=== PATIENT | male | born 1965 | race Caucasian/White ===

== ENCOUNTER 2017-11-12 19:45 | Emergency (ER) | payer BC, OTHER ==
[~2017-11-12] VITALS: Ht 175.3 cm; Wt 118.5 kg
[2017-11-12 19:59] VITALS: BP 137/80; PULSE 64; RESP 18; TEMP 98.4; O2SAT 97
[2017-11-12] MEDS ORDERED: ACETAMINOPHEN/HYDROcodone 325 MG/5 MG TAB PO ONE (20:15)
[2017-11-12] MEDS ORDERED: predniSONE 20 MG TAB PO ONE (20:15)
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
[2017-11-12] MEDS ORDERED: IBUP1TAB7 PO (20:41)
[2017-11-12] MEDS ORDERED: ROBA500T PO (20:41)
== END 2017-11-12 21:07 | disposition home or self-care (01) ==
LOC: PHEFT 19:45
DX: S39.012A Strain of muscle, fascia and tendon of lower back, initial encounter (principal); W22.09XA Striking against other stationary object, initial encounter; Y92.814 Boat as the place of occurrence of the external cause; Z79.899 Other long term (current) drug therapy; Z98.84 Bariatric surgery status
CPT/HCPCS: 72110; 99283; J7512

== ENCOUNTER 2017-12-06 02:01 | Inpatient (IN) ==
[2017-12-06] MEDS ORDERED: Acetaminophen 325 MG Tablet PO ONE (02:24)
[2017-12-06] MEDS ORDERED: Morphine Inj 4 MG/ML Vial IV.PUSH ONE (02:24)
--- NOTE | 2017-12-06 02:28 | ED ---
HPI General Chief complaint: Abdominal Pain Stated complaint: abd pain Time Seen by Provider: 12/06/17 02:13 Source: patient Mode of arrival: ambulatory Limitations: no limitations History of Present Illness HPI narrative: 52yo M with PSH of gastric sleeve presents to the ED with return of epigastric abdominal pain around 1am today. Said pain is constant, dull and nonradiating. Denies any more nausea. Denies vomiting, dysuria, hematuria, diarrhea, chest pain, sob, focal weakness or numbness. Pt denies any previous similar pain. Denies any history of gallstone or alcohol abuse. Pt was seen yesterday morning and had extensive work up including labs and CT a/p. He had mild leukocytosis, normal lipase and LFT as well as normal CT scan. He was given zofran and dilaudid. Was told to return to the ED if symptoms worsen. Related Data Previous Rx's Medication Instructions Recorded ondansetron HCl [Zofran] 4 mg PO Q6H PRN #12 tab 12/05/17 Allergies Allergy/AdvReac Type Severity Reaction Status Date / Time No Known Allergies Allergy Verified 12/06/17 03:00 Review of Systems ROS Unobtainable All other systems reviewed negative except as stated in HPI [facility] Medical History Medical History Patient denies medical problems (Acute) Surgical History Surgical History H/O gastric bypass (Acute) Social History Social History Substance History: No History of Abuse Second Hand Smoke Exposure: No Smoking Status: Never smoker How Often Do You Have a Drink Containing Alcohol: Never Exam Narrative Exam Narrative: GENERAL: 52yo M in mild distress. SKIN: Focused skin assessment warm/dry. HEAD: Atraumatic. Normocephalic. EYES: Pupils equal and round. No scleral icterus. No injection or drainage. ENT: No nasal bleeding or discharge. Mucous membranes pink and moist. NECK: Trachea midline. No JVD. CARDIOVASCULAR: Regular rate and rhythm. No murmur appreciated. RESPIRATORY: No accessory muscle use. Clear to auscultation. Breath sounds equal bilaterally. GASTROINTESTINAL: Abdomen soft, +TTP epigastric region. No rebound tenderness or guarding. MUSCULOSKELETAL: No obvious deformities. No clubbing. No cyanosis. No edema. NEUROLOGICAL: Awake and alert. No obvious cranial nerve deficits. Motor grossly within normal limits. Normal speech. PSYCHIATRIC: Appropriate mood and affect; insight and judgment normal. Course Initial Documented Vital Signs Temperature 100.6 F H 12/06/17 02:07 Pulse Rate 74 12/06/17 02:07 Respiratory Rate 20 12/06/17 02:07 Blood Pressure 149/91 H 12/06/17 02:07 Pulse Oximetry 99 12/06/17 02:07 Last Documented Vital Signs Temperature 99.6 F 12/06/17 04:00 Pulse Rate 78 12/06/17 04:33 Respiratory Rate 18 12/06/17 04:33 Blood Pressure 131/91 H 12/06/17 04:33 Pulse Oximetry 96 12/06/17 04:00 Medical Decision Making MDM Narrative Medical decision making narrative: 52yo M returns with severe epigastric abdominal pain after pain returned at 1am today. He was seen yesterday and discharged from the ED. He does have a mild fever at 100.6F today. Pt given acetaminophen for fever. Will repeat blood work including lipase to evaluate for any changes. Pt given morphine for pain. Labs reviewed, mildly increased leukocytosis at 14.7. H/H normal. Lipase normal. Liver enzymes normal. Pt reevaluated at bedside and pain has improved a little but still does not feel well and still in pain. Pt does meet SIRS criteria and this is a return visit in 24 hours. Will do blood culture, obtain UA, give zosyn and observe with possible GI consult. Discussed with Dr. Hale's PA and accepted to her service. Differential Diagnosis Differential Diagnosis: Choledocholithiasis vs. ascending cholangitis vs. pancreatitis vs. gastritis vs. peptic ulcer disease Lab Data Result diagrams: 12/06/17 02:30 12/06/17 02:30 Lab Results 12/06/17 12/06/17 12/06/17 Range/Units 02:30 02:30 03:30 CBC w Diff Auto diff final WBC 14.7 H (4.0-11.0) th/mm3 RBC 5.23 (4.50-5.90) mil/mm3 Hgb 14.4 (13.0-17.0) gm/dL Hct 42.9 (39.0-51.0) % MCV 81.9 (80.0-100.0) fL MCH 27.6 (27.0-34.0) pg MCHC 33.7 (32.0-36.0) % RDW 13.8 (11.6-17.2) % Plt Count 288 (150-450) th/mm3 MPV 8.6 (7.0-11.0) fL Neut % (Auto) 85.7 H (16.0-70.0) % Lymph % (Auto) 7.8 L (9.0-44.0) % [place] % (Auto) 5.8 (0.0-8.0) % Eos % (Auto) 0.5 (0.0-4.0) % Baso % (Auto) 0.2 (0.0-2.0) % Neut # (Auto) 12.6 H (1.8-7.7) th/mm3 Lymph # (Auto) 1.1 (1.0-4.8) th/mm3 [place] # (Auto) 0.9 (0.0-0.9) th/mm3 Eos # (Auto) 0.1 (0.0-0.4) th/mm3 Baso # (Auto) 0.0 (0.0-0.2) th/mm3 WBC Differential . Differential Comment . Sodium 138 (136-145) meq/L Potassium 3.7 (3.5-5.1) meq/L Chloride 103 (98-107) meq/L Carbon Dioxide 28.1 (21.0-32.0) meq/L Anion Gap 7 (5-15) meq/L BUN 12 (7-18) mg/dL Creatinine 0.98 (0.60-1.30) mg/dL Estimated GFR 80 L (>89) mL/min Random Glucose 103 (74-106) mg/dL Lactic Acid 0.8 (0.4-2.0) mmol/L Calcium 8.6 (8.5-10.1) mg/dL Total Bilirubin 1.0 (0.2-1.0) mg/dL AST 14 L (15-37) U/L ALT 19 (12-78) U/L Alkaline Phosphatase 76 (45-117) U/L Total Protein 8.2 (6.4-8.2) g/dL Albumin 3.7 (3.4-5.0) g/dL Lipase 111 (73-393) U/L Urine Color (Yellw/Straw) Urine Clarity (Clear) Urine pH (5.0-8.5) Ur Specific [place] (1.002-1.035) Urine Protein (Neg-Trace) mg/dL Urine Glucose (UA) (Negative) mg/dL Urine Ketones (Negative) mg/dL Urine Occult Blood (Negative) Urine Nitrate (Negative) Urine Bilirubin (Negative) Urine Urobilinogen (Less than 2) mg/dL Ur Leukocyte Esterase (Negative) 12/06/17 Range/Units 03:50 CBC w Diff WBC (4.0-11.0) th/mm3 RBC (4.50-5.90) mil/mm3 Hgb (13.0-17.0) gm/dL Hct (39.0-51.0) % MCV (80.0-100.0) fL MCH (27.0-34.0) pg MCHC (32.0-36.0) % RDW (11.6-17.2) % Plt Count (150-450) th/mm3 MPV (7.0-11.0) fL Neut % (Auto) (16.0-70.0) % Lymph % (Auto) (9.0-44.0) % [place] % (Auto) (0.0-8.0) % Eos % (Auto) (0.0-4.0) % Baso % (Auto) (0.0-2.0) % Neut # (Auto) (1.8-7.7) th/mm3 Lymph # (Auto) (1.0-4.8) th/mm3 [place] # (Auto) (0.0-0.9) th/mm3 Eos # (Auto) (0.0-0.4) th/mm3 Baso # (Auto) (0.0-0.2) th/mm3 WBC Differential Differential Comment Sodium (136-145) meq/L Potassium (3.5-5.1) meq/L Chloride (98-107) meq/L Carbon Dioxide (21.0-32.0) meq/L Anion Gap (5-15) meq/L BUN (7-18) mg/dL Creatinine (0.60-1.30) mg/dL Estimated GFR (>89) mL/min Random Glucose (74-106) mg/dL Lactic Acid (0.4-2.0) mmol/L Calcium (8.5-10.1) mg/dL Total Bilirubin (0.2-1.0) mg/dL AST (15-37) U/L ALT (12-78) U/L Alkaline Phosphatase (45-117) U/L Total Protein (6.4-8.2) g/dL Albumin (3.4-5.0) g/dL Lipase (73-393) U/L Urine Color Yellow (Yellw/Straw) Urine Clarity Clear (Clear) Urine pH 5.5 (5.0-8.5) Ur Specific [place] 1.025 (1.002-1.035) Urine Protein Negative (Neg-Trace) mg/dL Urine Glucose (UA) Negative (Negative) mg/dL Urine Ketones Negative (Negative) mg/dL Urine Occult Blood Negative (Negative) Urine Nitrate Negative (Negative) Urine Bilirubin Negative (Negative) Urine Urobilinogen 0.2 (Less than 2) mg/dL Ur Leukocyte Esterase Negative (Negative) Discharge Plan Discharge Disposition Patient Disposition: 30 Still Patient Physicians Team ED Provider: Kathi Ochoa Primary Care Provider: Jhonatan Nayak Attending Provider: Jennifer Vigil Status ED Status: Left Department Discharge Information Discharge Date/Time: 12/06/17 04:34
[2017-12-06 02:58] LABS: Baso % (Auto) 0.2 % (0.0-2.0); Eos # (Auto) 0.1 th/mm3 (0.0-0.4); Eos % (Auto) 0.5 % (0.0-4.0); Hematocrit 42.9 % (39.0-51.0); Hemoglobin 14.4 gm/dL (13.0-17.0); Lymph # (Auto) 1.1 th/mm3 (1.0-4.8); Lymph % (Auto) 7.8 % (9.0-44.0); Mean Corpuscular HGB Conc 33.7 % (32.0-36.0); Mean Corpuscular Hemoglobin 27.6 pg (27.0-34.0); Mean Corpuscular Volume 81.9 fL (80.0-100.0); Mean Platelet Volume 8.6 fL (7.0-11.0); Mono # (Auto) 0.9 th/mm3 (0.0-0.9); Mono % (Auto) 5.8 % (0.0-8.0); Neut # (Auto) 12.6 th/mm3 (1.8-7.7); Neut % (Auto) 85.7 % (16.0-70.0); Platelet Count 288 th/mm3 (150-450); Red Blood Count 5.23 mil/mm3 (4.50-5.90); Red Cell Distribution Width 13.8 % (11.6-17.2); White Blood Count 14.7 th/mm3 (4.0-11.0)
[2017-12-06 03:01] LABS: Chloride 103 meq/L (98-107); Potassium 3.7 meq/L (3.5-5.1); Sodium 138 meq/L (136-145)
[2017-12-06 03:04] LABS: Albumin 3.7 g/dL (3.4-5.0); Anion Gap 7 meq/L (5-15); Calcium 8.6 mg/dL (8.5-10.1); Carbon Dioxide 28.1 meq/L (21.0-32.0); Lipase 111 U/L (73-393)
[2017-12-06 03:05] LABS: Blood Urea Nitrogen 12 mg/dL (7-18); Glucose,Random 103 mg/dL (74-106)
[2017-12-06 03:07] LABS: Alanine Aminotransferase 19 U/L (12-78); Aspartate Aminotransferase 14 U/L (15-37); Glomerular Filtration Rate 80 mL/min (>89)
[2017-12-06 03:09] LABS: Total Protein 8.2 g/dL (6.4-8.2)
[2017-12-06 03:10] LABS: Alkaline Phosphatase 76 U/L (45-117)
[2017-12-06] MEDS ORDERED: Piperacil/Tazo 4.5 GM Premix 4.5 GM/100 ML BAG IV.SIG ONE (03:20)
[2017-12-06] MEDS: Sod Chloride 0.9% Inj 1,000 ML IV.CONT SCH ×2 (03:51→21:40)
[2017-12-06 04:05] LABS: Bilirubin,Urine Negative (Negative); Clarity,Urine Clear (Clear); Color,Urine Yellow (Yellw/Straw); Glucose,Urine (UA) Negative (Negative); Leukocyte Esterase,Urine Negative (Negative); Nitrite,Urine Negative (Negative); PH,Urine 5.5 (5.0-8.5); Specific Gravity,Urine 1.025 (1.002-1.035); Urobilinogen,Urine 0.2 mg/dL (Less than 2)
[2017-12-06] MEDS: Morphine Sulfate Inj 2 MG/ML Vial IV.PUSH PRN ×2 (05:08→08:02)
[2017-12-06 08:08] LABS: Baso # (Auto) 0.7 th/mm3 (0.0-0.2); Baso % (Auto) 4.4 % (0.0-2.0); Eos % (Auto) 0.3 % (0.0-4.0); Hematocrit 40.1 % (39.0-51.0); Hemoglobin 13.7 gm/dL (13.0-17.0); Lymph % (Auto) 6.7 % (9.0-44.0); Mean Corpuscular HGB Conc 34.2 % (32.0-36.0); Mean Platelet Volume 8.4 fL (7.0-11.0); Mono # (Auto) 1.1 th/mm3 (0.0-0.9); Mono % (Auto) 7.1 % (0.0-8.0); Neut # (Auto) 12.3 th/mm3 (1.8-7.7); Neut % (Auto) 81.5 % (16.0-70.0); Platelet Count 254 th/mm3 (150-450); Red Blood Count 4.89 mil/mm3 (4.50-5.90); Red Cell Distribution Width 13.4 % (11.6-17.2); White Blood Count 15.1 th/mm3 (4.0-11.0)
[2017-12-06] MEDS: Acetaminophen 325 MG Tablet PO PRN (08:08)
[2017-12-06] MEDS ORDERED: Senna/Docusate Sodium 8.6/50 MG Tablet PO PRN (10:48)
[2017-12-06] MEDS ORDERED: Bisacodyl 10 MG Supp RECTAL ONE (11:00)
--- NOTE | 2017-12-06 11:01 | P.HP ---
History of Present Illness Primary Care Physician: Jhonatan Nayak MD Chief Complaint: Abdominal pain History of Present Illness: 52-year-old male with no chronic medical illnesses who presented to hospital because of acute onset abdominal pain. Patient indicates that he did have gastric sleeve surgery done in March 2017 by a physician in [facility]. Patient been doing well with that procedure except for when he decides to eat too much he usually has to cause himself to vomit in order to get rid of the pain and discomfort. Patient states that he woke up Wednesday at approximately 5 AM with sudden onset of epigastric abdominal pain. The patient states that he tried to induce vomiting but the pain did not go away. The patient's pain progressively got worse until he came to the emergency department yesterday morning. Patient was given Dilaudid with significant improvement of his abdominal pain and was discharged home on Zofran. The patient states that once Zofran wore off approximately retirement through the day the pain progressively got worse throughout the evening so he came back to the emergency department for evaluation. Patient did have workup in the emergency department and found to have leukocytosis. However no other laboratory studies indicative any intra-abdominal etiology. CT scan was done of the abdomen which did not indicate any acute abnormality also. Because the patient came back to the emergency department 2 times in 1 day, leukocytosis and low-grade fever he is recommended by the ER physician that the patient be observed in the hospital for further evaluation and management. Patient denies any nausea, vomiting, hematemesis. Patient has not had a bowel movement in approximately 4-5 days. He believes that he is constipated. Denies any dark colored stools or hematochezia. - Diagnosis (1) Abdominal pain (2) Leukocytosis (3) Febrile illness (4) Elevated blood pressure reading Review of Systems All other systems reviewed negative except as stated in HPI Gastrointestinal: Reports abdominal pain, Reports constipation PMFSH - History History Provided By: Patient - Medical History Medical History: Medical History (Last Reviewed 12/06/17 @ 05:14 by Juana Danielle RN) Patient denies medical problems - Surgical History Surgical History: Surgical History (Last Updated 12/06/17 @ 05:15 by Juana Danielle RN) H/O gastric bypass - Family History Family History: Family History (Last Updated 12/06/17 @ 10:53 by ROHINI Rutledge) Other No significant family history - Tobacco History Second Hand Smoke Exposure: No Smoking Status: Never smoker - Alcohol History How Often Do You Have a Drink Containing Alcohol: Never - Substance Use History Substance History: No History of Abuse - Immunization History Tetanus Immunization: Unsure Hx Influenza Vaccine This Season: No Medications and Allergies Active Medications: Active Medications Acetaminophen (Tylenol) 650 mg PO Q4H PRN PRN Reason: Temp > 100.4 Last Admin: 12/06/17 08:08 Dose: 650 mg Hydrocodone Bitart/Acetaminophen ([place] 7.5/325) 1 tab PO Q6H PRN PRN Reason: pain 1 - 5 Al Hydroxide/Mg Hydroxide (Milk Of Magnesia Liq) 30 ml PO DAILY PRN PRN Reason: SEVERE CONSITIPATION Bisacodyl (Dulcolax Supp) 10 mg RECTAL ONCE ONE Stop: 12/06/17 10:49 Hydromorphone HCl (Dilaudid Pf Inj) 1 mg IV.PUSH Q4H PRN PRN Reason: pain 6 - 10 Sodium Chloride (Ns Inj) 1,000 mls @ 100 mls/hr IV.CONT .Q10H SUZANNE Last Admin: 12/06/17 03:51 Dose: 100 mls/hr Ondansetron HCl (Zofran Inj) 4 mg IV.PUSH Q6H PRN PRN Reason: NAUSEA OR VOMITING Last Admin: 12/06/17 08:03 Dose: 4 mg Pantoprazole Sodium (Protonix) 40 mg PO HS SUZANNE Senna/Docusate Sodium (Darcy-Colace) 1 tab PO BID PRN PRN Reason: CONSTIPATION Allergies Allergy/AdvReac Type Severity Reaction Status Date / Time No Known Allergies Allergy Verified 12/06/17 03:00 Exam Vital signs: Vital Signs 12/06/17 02:07 12/06/17 03:02 12/06/17 03:24 Temperature 100.6 F H 99.3 F Pulse Rate 74 80 78 Respiratory Rate 20 18 18 Blood Pressure 149/91 H 152/89 H Pulse Oximetry 99 99 99 12/06/17 04:00 12/06/17 04:33 12/06/17 08:00 Temperature 99.6 F 100.3 F H Pulse Rate 65 78 68 Respiratory Rate 20 18 18 Blood Pressure 134/82 131/91 H 153/95 H Pulse Oximetry 96 97 Intake & Output 12/05/17 12/06/17 12/06/17 18:59 06:59 18:59 Intake Total 100 / 100 Output Total 200 / 200 Balance -100 / -100 Weight 118.6 kg Intake: IV 100 / 100 Zosyn 4.5 GM Premix 4.5 gm In 100 / 100 100 ml @ 200 mls/hr IV.SIG ONCE ONE Rx#:[id number] Oral 0 / 0 Output: Urine 200 / 200 Other: # Voids 1 # Bowel Movements 0 Weight On Admission 118.4 kg Narrative: GENERAL: Well-developed, well-nourished, in no acute distress. alert and orientated HEENT: Head is normocephalic without any lesions or masses noted. Facial features are symmetric. Eyes: Extraocular muscles are intact. Conjunctivae were clear. NECK: Supple without any masses. Trachea midline no deviation. No JVD, no bruits are appreciated CARDIAC: Regular rhythm, regular rate. S1/S2 are heard. No murmurs gallops or rubs. LUNGS: Clear to auscultation bilaterally. No wheeze, rhonchi or rales. No use of accessory muscles on inspiration or expiration. ABDOMEN: Soft, nontender. Nondistended. Bowel sounds heard in all 4 quadrants. No organomegaly or masses. Negative rebound, negative guarding EXTREMITIES: No edema, pulses are equal bilaterally. No cyanosis or clubbing NEUROLOGY: Mood and affect appear appropriate. Cranial nerves II through XII grossly intact. Muscle strength 5/5 in upper and lower extremities bilaterally. Deep tendon reflexes are 2+ in upper and lower extremities bilaterally. Results - Labs CBC & Chem 7: 12/06/17 07:58 12/06/17 02:30 Labs: Laboratory Results - last 24 hr 12/06/17 12/06/17 12/06/17 02:30 02:30 03:30 CBC w Diff Auto diff final WBC 14.7 H RBC 5.23 Hgb 14.4 Hct 42.9 MCV 81.9 MCH 27.6 MCHC 33.7 RDW 13.8 Plt Count 288 MPV 8.6 Neut % (Auto) 85.7 H Lymph % (Auto) 7.8 L [place] % (Auto) 5.8 Eos % (Auto) 0.5 Baso % (Auto) 0.2 Neut # (Auto) 12.6 H Lymph # (Auto) 1.1 [place] # (Auto) 0.9 Eos # (Auto) 0.1 Baso # (Auto) 0.0 WBC Differential . Diff Scan Differential Comment . Sodium 138 Potassium 3.7 Chloride 103 Carbon Dioxide 28.1 Anion Gap 7 BUN 12 Creatinine 0.98 Estimated GFR 80 L Random Glucose 103 Lactic Acid 0.8 Calcium 8.6 Total Bilirubin 1.0 AST 14 L ALT 19 Alkaline Phosphatase 76 Total Protein 8.2 Albumin 3.7 Lipase 111 Urine Color Urine Clarity Urine pH Ur Specific [place] Urine Protein Urine Glucose (UA) Urine Ketones Urine Occult Blood Urine Nitrate Urine Bilirubin Urine Urobilinogen Ur Leukocyte Esterase 12/06/17 12/06/17 03:50 07:58 CBC w Diff Slide review pending WBC 15.1 H RBC 4.89 Hgb 13.7 Hct 40.1 MCV 82.0 MCH 28.0 MCHC 34.2 RDW 13.4 Plt Count 254 MPV 8.4 Neut % (Auto) 81.5 H Lymph % (Auto) 6.7 L [place] % (Auto) 7.1 Eos % (Auto) 0.3 Baso % (Auto) 4.4 H Neut # (Auto) 12.3 H Lymph # (Auto) 1.0 [place] # (Auto) 1.1 H Eos # (Auto) 0.0 Baso # (Auto) 0.7 H WBC Differential . Diff Scan Auto diff confirmed Differential Comment . Sodium Potassium Chloride Carbon Dioxide Anion Gap BUN Creatinine Estimated GFR Random Glucose Lactic Acid Calcium Total Bilirubin AST ALT Alkaline Phosphatase Total Protein Albumin Lipase Urine Color Yellow Urine Clarity Clear Urine pH 5.5 Ur Specific [place] 1.025 Urine Protein Negative Urine Glucose (UA) Negative Urine Ketones Negative Urine Occult Blood Negative Urine Nitrate Negative Urine Bilirubin Negative Urine Urobilinogen 0.2 Ur Leukocyte Esterase Negative Caprini VTE Risk Assessment Caprini VTE Risk Assessment: No/Low Risk (score <= 1) Caprini Risk Assessment Model: Point Value = 1 Point Value = 2 Point Value = 3 Point Value = 5 Age 41-60 Minor surgery BMI > 25 kg/m2 Swollen legs Varicose veins or History of unexplained or recurrent spontaneous Oral contraceptives or hormone replacement Sepsis (< 1 month) Serious lung disease, including pneumonia (< 1 month) Abnormal pulmonary function Acute myocardial infarction Congestive heart failure (< 1 month) History of inflammatory bowel disease Medical patient at bed rest Age 61-74 Arthroscopic surgery Major open surgery (> 45 min) Laparoscopic surgery (> 45 min) Malignancy Confined to bed (> 72 hours) Immobilizing plaster cast Central venous access Age >= 75 History of VTE Family history of VTE Factor V Leiden Prothrombin [id number] Lupus anticoagulant Anticardiolipin antibodies Elevated serum homocysteine Heparin-induced thrombocytopenia Other congenital or acquired thrombophilia Stroke (< 1 month) Elective arthroplasty Hip, pelvis, or leg fracture Acute spinal cord injury (< 1 month) Prophylaxis Regimen: Total Risk Factor Score Risk Level Prophylaxis Regimen 0-1 Low Early ambulation 2 Moderate Order ONE of the following: *Sequential Compression Device (SCD) *Heparin 5000 units SQ BID 3-4 Higher Order ONE of the following medications: *Heparin 5000 units SQ TID *Enoxaparin/Lovenox 40 mg SQ daily (WT < 150 kg, CrCl > 30 mL/min) *Enoxaparin/Lovenox 30 mg SQ daily (WT < 150 kg, CrCl > 10-29 mL/min) *Enoxaparin/Lovenox 30 mg SQ BID (WT < 150 kg, CrCl > 30 mL/min) AND/OR *Sequential Compression Device (SCD) 5 or more Highest Order ONE of the following medications: *Heparin 5000 units SQ TID (Preferred with Epidurals) *Enoxaparin/Lovenox 40 mg SQ daily (WT < 150 kg, CrCl > 30 mL/min) *Enoxaparin/Lovenox 30 mg SQ daily (WT < 150 kg, CrCl > 10-29 mL/min) *Enoxaparin/Lovenox 30 mg SQ BID (WT < 150 kg, CrCl > 30 mL/min) AND *Sequential Compression Device (SCD) Assessment and Plan - Assessment (1) Abdominal pain Code(s): R10.9 - Unspecified abdominal pain Status: Acute Plan: -Etiology is unclear at this time the patient's abdominal pain. Could be secondary to constipation -CT scan of the abdomen does not indicate any acute abnormality -Laboratory studies do not indicate any acute abdominal etiology -Continue IV fluids -Continue pain control -Start Darcy-Colace twice daily -Give Dulcolax suppository 1 (2) Leukocytosis Code(s): D72.829 - Elevated white blood cell count, unspecified Status: Acute Plan: -Unknown etiology -Abdominal CT does not indicate any abnormality -Urinalysis was clear -Blood cultures are pending -Obtain chest x-ray to evaluate for any respiratory etiology (3) Febrile illness Code(s): R50.9 - Fever, unspecified Status: Acute Plan: -Unknown etiology at this time, could be viral in nature -Continue workup as above for leukocytosis (4) Elevated blood pressure reading Code(s): R03.0 - Elevated blood-pressure reading, without diagnosis of hypertension Status: Acute Plan: -Patient has no history of hypertension, could be secondary to pain -Vasotec as needed - Plan Low risk, early ambulation
[2017-12-06] MEDS ORDERED: HYDROmorphone PF Inj 1 MG/ML Ampul IV.PUSH ONE (11:15)
--- NOTE | 2017-12-06 12:28 | XR ---
EXAM DATE: 12/06/2017 12:25 PM EDT AGE/SEX: 52 years / Male INDICATIONS: Fever. Abdominal pain. CLINICAL DATA: This is the patient's initial encounter. Patient reports that signs and symptoms have been present for 2 days and indicates a pain score of 6/10. MEDICAL/SURGICAL HISTORY: None. Gastric bypass. COMPARISON: No prior exams available for comparison. FINDINGS: PA and lateral views of the chest demonstrate the lungs to be symmetrically aerated without evidence of mass, infiltrate or effusion. The cardiomediastinal contours are unremarkable. Osseous structures are intact. CONCLUSION: No acute intrathoracic disease. Electronically signed by: Alex Rosado MD 12/06/2017 12:27 PM EDT
[2017-12-06] MEDS ORDERED: Magnesium Citrate Liq 300 ML Bottle PO ONE (14:53)
[2017-12-06] MEDS: HYDROmorphone PF Inj 1 MG/ML Ampul IV.PUSH PRN ×2 (16:04→21:42)
[2017-12-07] MEDS: Sod Chloride 0.9% Inj 1,000 ML IV.CONT SCH ×3 (01:11→21:16)
[2017-12-07 04:58] LABS: Baso # (Auto) 0.1 th/mm3 (0.0-0.2); Baso % (Auto) 0.5 % (0.0-2.0); Eos % (Auto) 0.2 % (0.0-4.0); Hematocrit 40.7 % (39.0-51.0); Hemoglobin 13.6 gm/dL (13.0-17.0); Lymph # (Auto) 1.1 th/mm3 (1.0-4.8); Lymph % (Auto) 5.6 % (9.0-44.0); Mean Corpuscular HGB Conc 33.5 % (32.0-36.0); Mean Corpuscular Hemoglobin 28.1 pg (27.0-34.0); Mean Corpuscular Volume 83.9 fL (80.0-100.0); Mono # (Auto) 1.2 th/mm3 (0.0-0.9); Mono % (Auto) 6.2 % (0.0-8.0); Neut # (Auto) 16.7 th/mm3 (1.8-7.7); Neut % (Auto) 87.5 % (16.0-70.0); Platelet Count 234 th/mm3 (150-450); Red Blood Count 4.85 mil/mm3 (4.50-5.90); Red Cell Distribution Width 12.9 % (11.6-17.2); White Blood Count 19.1 th/mm3 (4.0-11.0)
[2017-12-07] MEDS: HYDROmorphone PF Inj 1 MG/ML Ampul IV.PUSH PRN (04:59)
[2017-12-07 05:08] LABS: Potassium 4.1 meq/L (3.5-5.1)
[2017-12-07 05:10] LABS: Calcium 8.6 mg/dL (8.5-10.1)
[2017-12-07 05:11] LABS: Carbon Dioxide 30.7 meq/L (21.0-32.0)
--- NOTE | 2017-12-07 08:45 | P.PNIM ---
Subjective Interval history: Follow up abdominal pain, nausea, vomiting and sepsis. Patient seen and examined , reports of 2 BMs overnight. Abdominal pain is controlled with pain medication although it seems to come back when the pain medication wears off. Patient does admit to one bout of nausea overnight, no vomiting. VSS. Continued leukocytosis. Physical Exam Vital signs: Vital Signs 12/06/17 12:00 12/06/17 16:00 12/06/17 20:00 Temperature 99.3 F 99.7 F H 99.5 F Pulse Rate 71 98 H 92 H Respiratory Rate 19 18 18 Blood Pressure 144/83 H 131/82 159/98 H Pulse Oximetry 97 95 12/07/17 00:00 Temperature 98.7 F Pulse Rate 93 H Respiratory Rate 20 Blood Pressure 118/72 Pulse Oximetry 96 Intake & Output 12/06/17 12/07/17 12/07/17 18:59 06:59 18:59 Intake Total 1720 / 1720 1000 / 1000 Output Total 850 / 850 200 / 200 Balance 870 / 870 800 / 800 Weight 117.4 kg Intake: IV 1000 / 1000 1000 / 1000 NS Inj 1,000 ML @ 100 mls/hr IV 1000 / 1000 1000 / 1000 .CONT .Q10H [facility] Rx#:[id number] Oral 720 / 720 Output: Urine 850 / 850 200 / 200 Other: # Voids 4 # Bowel Movements 0 Narrative: GENERAL: Well-developed, well-nourished patient in [facility]. SKIN: Warm and dry. No rash. HEAD: Normocephalic. Atraumatic. EYES: Pupils equal and round. No scleral icterus. No injection or drainage. ENT: No nasal bleeding or discharge. Mucous membranes pink and moist. NECK: Supple. Trachea midline. CARDIOVASCULAR: Regular rate and rhythm. S1, S2 noted. No murmur appreciated. RESPIRATORY: No accessory muscle use. Clear to auscultation. Breath sounds equal bilaterally. GASTROINTESTINAL: Abdomen soft, mild tenderness to right lower quadrant as well as midepigastric area, nondistended. Normoactive bowel sounds x4. MUSCULOSKELETAL: No obvious deformities. Extremities without clubbing, cyanosis , or edema. NEUROLOGICAL: Awake and alert. No obvious cranial nerve deficits. Motor grossly within normal limits. 5/5 muscle strength in bilateral upper and lower extremities. Normal speech. PSYCHIATRIC: Appropriate mood and affect; insight and judgment normal. - Constitutional mild distress (Abdominal discomfort) - Routine HEENT Exam Head: Present: normocephalic Eye: Present: EOMI ENT: Present: mucous membranes moist - Routine Neck Exam Present: supple - Routine Cardiovascular Exam Present: RRR, S1, S2 - Routine Abdominal Exam Present: soft, normoactive bowel sounds - Routine Skin Exam Present: intact - Routine Neurological Exam Present: alert, oriented X3 - Detailed Neurological Exam: Coma Scale Eye Opening: Spontaneous Verbal Response: Oriented Motor Response: Obey commands Katherine Coma Scale Total: 15 Results - Labs CBC & Chem 7: 12/07/17 04:40 12/07/17 04:40 Laboratory Results - last 24 hr 12/06/17 12/07/17 12/07/17 07:58 04:40 04:40 CBC w Diff Slide review pending Auto diff final WBC 15.1 H 19.1 H RBC 4.89 4.85 Hgb 13.7 13.6 Hct 40.1 40.7 MCV 82.0 83.9 MCH 28.0 28.1 MCHC 34.2 33.5 RDW 13.4 12.9 Plt Count 254 234 MPV 8.4 8.0 Neut % (Auto) 81.5 H 87.5 H Lymph % (Auto) 6.7 L 5.6 L [place] % (Auto) 7.1 6.2 Eos % (Auto) 0.3 0.2 Baso % (Auto) 4.4 H 0.5 Neut # (Auto) 12.3 H 16.7 H Lymph # (Auto) 1.0 1.1 [place] # (Auto) 1.1 H 1.2 H Eos # (Auto) 0.0 0.0 Baso # (Auto) 0.7 H 0.1 WBC Differential . . Diff Scan Auto diff confirmed Differential Comment . . Sodium 136 Potassium 4.1 Chloride 99 Carbon Dioxide 30.7 Anion Gap 6 BUN 8 Creatinine 0.94 Estimated GFR 84 L Random Glucose 112 H Calcium 8.6 - Imaging Impressions Chest X-Ray 12/06/17 00:00 CONCLUSION: No acute intrathoracic disease. Assessment and Plan - Assessment (1) Abdominal pain Code(s): R10.9 - Unspecified abdominal pain Status: Acute Plan: -Etiology is unclear at this time the patient's abdominal pain. Could be secondary to constipation. Has improved although still present. Will order for 1 fleets enema. Assess response. - Will obtain records from surgery back in March 2017. -We will also give GI cocktail for complaints of midepigastric discomfort. -CT scan of the abdomen does not indicate any acute abnormality. -Laboratory studies do not indicate any acute abdominal etiology. -Continue IV fluids. -Continue pain control. -Continue Darcy-Colace twice daily. -Status post Dulcolax suppository 1 yesterday. -Reports of two BMs last evening. (2) Leukocytosis Code(s): D72.829 - Elevated white blood cell count, unspecified Status: Acute Plan: -Unknown etiology -Abdominal CT does not indicate any abnormality -Urinalysis was clear. -Blood cultures pending. -Chest x-ray reviewed and negative. (3) Febrile illness Code(s): R50.9 - Fever, unspecified Status: Acute Plan: -Unknown etiology at this time, could be viral in nature -Continue workup as above for leukocytosis (4) Elevated blood pressure reading Code(s): R03.0 - Elevated blood-pressure reading, without diagnosis of hypertension Status: Acute Plan: -Patient has no history of hypertension, could be secondary to pain. -Has been controlled overnight. -Vasotec as needed - Plan Discharge Planning: Pending clinical improvement. Awaiting blood cultures. Possible DC today if continued to be afebrile and blood cultures negative.
[2017-12-07] MEDS ORDERED: Sod Phosphate/Sod Biphosphate (Adult) Enema 133 ML Bottle RECTAL ONE (11:00)
--- NOTE | 2017-12-07 11:30 | XR ---
EXAM DATE: 12/07/2017 11:17 AM EDT AGE/SEX: 52 years / Male INDICATIONS: Upper mid abdominal pain, nausea, constipation. CLINICAL DATA: This is the patient's subsequent encounter. Patient reports that signs and symptoms h ave been present for 4 - 6 days and indicates a pain score of 6/10. MEDICAL/SURGICAL HISTORY: None. . gastric sleeve COMPARISON: [facility], CT ABDOMEN & PELVIS W CONTRAST, 12/05/2017. . FINDINGS: The abdominal bowel gas pattern is normal. No abnormal masses, calcifications, or organomegaly is s een. The osseous structures are unremarkable. CONCLUSION: No evidence of obstruction. Electronically signed by: Kye Durbin MD 12/07/2017 11:29 AM EDT
[2017-12-07] MEDS: Acetaminophen 325 MG Tablet PO PRN (17:57)
--- NOTE | 2017-12-07 19:38 | P.CONID ---
History of Present Illness Service: Infectious Disease Consult date: 12/07/17 Requesting Physician: Allegra Mccloud Reason for Consult: Leucocytosis Primary Care Provider: Jhonatan Nayak MD Family Provider: Physician [facility] Chief Complaint: Abdominal pain History of Present Illness: 52/M with h/o obesity underwent a gastric sleeve surgery in Mar of last year and had done well till last Wednesday he went out and ate and then when he came home he had severe epigastric pain around midnight - he tried to vomit but could not and had acid reflux. He came to ER and a CT scan was done and pain was relieved after pain med and anti emetic so he was discharged but then when he had symptoms again he came back. He has a high white count and was started on Zosyn but he did not tolerate it so it was stopped. He has had a few bowel movements and now feels better with less pain. He denies any dyspnea or cough. Review of Systems Constitutional: Reports fever(s), Reports weight loss, Denies anorexia, Denies excessive sweating, Denies fatigue, Denies night sweats Eyes: Denies blurry vision, Denies bulging eyes, Denies change in vision Ears, Nose, Mouth, and Throat: Denies bleeding gums, Denies bad breath, Denies difficulty swallowing, Denies nasal obstruction Cardiovascular: Denies chest pain, Denies chest pain at rest, Denies lightheadedness, Denies shortness of breath with activity Respiratory: Denies change in phlegm color, Denies chest congestion, Denies cough, Denies coughing up blood Gastrointestinal: Reports abdominal pain, Reports belching, Reports bloating, Reports heartburn, Reports loose stools (now after geeting meds), Denies difficulty swallowing Genitourinary: Denies blood in urine, Denies decreased urination, Denies painful urination, Denies side pain, Denies frequent nighttime urination Musculoskeletal: Denies abnormal walking, Denies back pain, Denies body aches Skin/Breast: Denies bleeding lesions, Denies redness, Denies skin ulcer, Denies stretch dill Neurologic: Denies abnormal hearing, Denies abnormal movements, Denies frequent falls, Denies localized weakness, Denies loss of vision Psychiatric: Denies anxiety, Denies confusion, Denies depression Endocrine: Denies cold intolerance Hematologic/Lymphatic: Denies easy bleeding, Denies easy bruising PMFSH - History History Provided By: Patient - Medical / Surgical Hx Neg / Unobtainable Medical Problems Denied: Yes - Medical History Medical History: Medical History (Last Reviewed 12/06/17 @ 05:14 by Juana Danielle RN) Patient denies medical problems - Surgical History Surgical History: Surgical History (Last Updated 12/06/17 @ 05:15 by Juana Danielle RN) H/O gastric bypass - Family History Family History: Family History (Last Updated 12/06/17 @ 10:53 by ROHINI Rutledge) Other No significant family history - Tobacco History Second Hand Smoke Exposure: No Smoking Status: Never smoker - Alcohol History How Often Do You Have a Drink Containing Alcohol: Never - Substance Use History Substance History: No History of Abuse - Immunization History Tetanus Immunization: Unsure Hx Influenza Vaccine This Season: No Medications and Allergies Active Medications: Active Medications Acetaminophen (Tylenol) 650 mg PO Q4H PRN PRN Reason: Temp > 100.4 Last Admin: 12/07/17 17:57 Dose: 650 mg Hydrocodone Bitart/Acetaminophen ([place] 7.5/325) 1 tab PO Q6H PRN PRN Reason: pain 1 - 5 Al Hydroxide/Mg Hydroxide (Milk Of Magnesia Liq) 30 ml PO DAILY PRN PRN Reason: SEVERE CONSITIPATION Last Admin: 12/06/17 11:16 Dose: 30 ml Enalaprilat (Vasotec Inj) 1.25 mg IV.PUSH Q6H PRN PRN Reason: SBP>160, DBP>90 Hydromorphone HCl (Dilaudid Pf Inj) 1 mg IV.PUSH Q4H PRN PRN Reason: pain 6 - 10 Last Admin: 12/07/17 04:59 Dose: 1 mg Sodium Chloride (Ns Inj) 1,000 mls @ 100 mls/hr IV.CONT .Q10H [facility] Last Infusion: 12/07/17 13:00 Dose: Infused Metoclopramide HCl (Reglan Inj) 5 mg IV.PUSH Q8HR [facility]; Protocol Last Admin: 12/07/17 14:45 Dose: 5 mg Ondansetron HCl (Zofran Inj) 4 mg IV.PUSH Q6H PRN PRN Reason: NAUSEA OR VOMITING Last Admin: 12/06/17 08:03 Dose: 4 mg Pantoprazole Sodium (Protonix) 40 mg PO [facility] Last Admin: 12/06/17 21:41 Dose: 40 mg Senna/Docusate Sodium (Darcy-Colace) 1 tab PO BID PRN PRN Reason: CONSTIPATION Allergies Allergy/AdvReac Type Severity Reaction Status Date / Time No Known Allergies Allergy Verified 12/06/17 03:00 Exam Vital signs: Vital Signs 12/06/17 20:00 12/07/17 00:00 12/07/17 10:55 Temperature 99.5 F 98.7 F 98.3 F Pulse Rate 92 H 93 H Respiratory Rate 18 20 Blood Pressure 159/98 H 118/72 Pulse Oximetry 96 12/07/17 12:00 12/07/17 14:22 12/07/17 16:00 Temperature 100.7 F H 99.8 F H 101.7 F H Pulse Rate 94 H 92 H Respiratory Rate 17 17 Blood Pressure 120/64 125/78 Pulse Oximetry 95 95 Intake & Output 12/07/17 12/07/17 12/08/17 06:59 18:59 06:59 Intake Total 1000 / 1000 2210 / 2210 Output Total 200 / 200 Balance 800 / 800 2210 / 2210 Weight 117.4 kg Intake: IV 1000 / 1000 1250 / 1250 NS Inj 1,000 ML @ 100 mls/hr IV 1000 / 1000 1250 / 1250 .CONT .Q10H [facility] Rx#:[id number] Oral 960 / 960 Output: Urine 200 / 200 Other: # Voids 4 6 # Bowel Movements 2 - Constitutional no acute distress, obese - Routine HEENT Exam Head: Present: normocephalic, atraumatic Eye: Present: EOMI. Absent: conjunctival icterus, exophthalmos ENT: Present: mucous membranes moist, oropharynx clear, nares patent - Routine Neck Exam Present: supple, full ROM. Absent: carotid bruit - Routine Chest/Breast/Axilla Exam Chest wall: Absent: tenderness, mass - Routine Respiratory Exam Present: decreased breath sounds. Absent: accessory muscle use, respiratory distress, rhonchi - Routine Cardiovascular Exam Present: RRR, S1, S2. Absent: murmur - Routine Abdominal Exam Present: soft, normoactive bowel sounds, tenderness. Absent: distended, organomegaly, mass - Routine Extremities Exam Absent: cyanosis, clubbing, edema, calf tenderness - Routine Skin Exam Present: intact. Absent: cyanosis, erythema, dry - Routine Neurological Exam Present: alert, oriented X3, CN II-XII intact. Absent: motor deficit Results - Labs CBC & Chem 7: 12/07/17 04:40 12/07/17 04:40 Labs: Laboratory Results - last 24 hr 12/07/17 12/07/17 12/07/17 04:40 04:40 04:40 CBC w Diff Auto diff final WBC 19.1 H RBC 4.85 Hgb 13.6 Hct 40.7 MCV 83.9 MCH 28.1 MCHC 33.5 RDW 12.9 Plt Count 234 MPV 8.0 Neut % (Auto) 87.5 H Lymph % (Auto) 5.6 L [place] % (Auto) 6.2 Eos % (Auto) 0.2 Baso % (Auto) 0.5 Neut # (Auto) 16.7 H Lymph # (Auto) 1.1 [place] # (Auto) 1.2 H Eos # (Auto) 0.0 Baso # (Auto) 0.1 WBC Differential . Differential Comment . ESR 1 Sodium 136 Potassium 4.1 Chloride 99 Carbon Dioxide 30.7 Anion Gap 6 BUN 8 Creatinine 0.94 Estimated GFR 84 L Random Glucose 112 H Calcium 8.6 C-Reactive Protein 12/07/17 04:40 CBC w Diff WBC RBC Hgb Hct MCV MCH MCHC RDW Plt Count MPV Neut % (Auto) Lymph % (Auto) [place] % (Auto) Eos % (Auto) Baso % (Auto) Neut # (Auto) Lymph # (Auto) [place] # (Auto) Eos # (Auto) Baso # (Auto) WBC Differential Differential Comment ESR Sodium Potassium Chloride Carbon Dioxide Anion Gap BUN Creatinine Estimated GFR Random Glucose Calcium C-Reactive Protein 23.70 H - Imaging Impressions Abdomen X-Ray 12/07/17 00:00 CONCLUSION: No evidence of obstruction. Assessment and Plan (1) Abdominal pain Status: Acute Code(s): R10.9 - Unspecified abdominal pain (2) Leukocytosis Status: Acute Code(s): D72.829 - Elevated white blood cell count, unspecified (3) Febrile illness Status: Acute Code(s): R50.9 - Fever, unspecified (4) Elevated blood pressure reading Status: Acute Code(s): R03.0 - Elevated blood-pressure reading, without diagnosis of hypertension - Plan 1. Patient's low grade fevers and leucocytosis is likely secondary to aspiration (in view of the history). 2. Will repeat CXR now- if there is an infiltrate patient advised he will need some antibiotics. 3. Follow Blood cultures 4. Doubt this is gall bladder disease- patient is due to have a US in am 5. Check CBC in am
--- NOTE | 2017-12-07 21:03 | XR ---
EXAM DATE: 12/07/2017 8:57 PM EDT AGE/SEX: 52 years / Male INDICATIONS: Fever. Sepsis. Abdominal Pain. CLINICAL DATA: This is the patient's subsequent encounter. Patient reports that signs and symptoms h ave been present for 4 - 6 days and indicates a pain score of 0/10. MEDICAL/SURGICAL HISTORY: None. . Gastric bypass COMPARISON: [facility], CHEST 2V PA&LAT, 12/06/2017. . FINDINGS: Mild patchy consolidation seen of the left lung base, mostly in the lower lobe. No pleural effusion s een. No pneumothorax. Heart size stable, within normal limits. CONCLUSION: Early or mild pneumonia developing left lung base. Electronically signed by: Dieter Sarmiento MD 12/07/2017 9:02 PM EDT
[2017-12-08 06:50] LABS: Baso % (Auto) 0.2 % (0.0-2.0); Eos # (Auto) 0.2 th/mm3 (0.0-0.4); Eos % (Auto) 1.2 % (0.0-4.0); Hematocrit 37.7 % (39.0-51.0); Hemoglobin 12.6 gm/dL (13.0-17.0); Lymph # (Auto) 1.4 th/mm3 (1.0-4.8); Lymph % (Auto) 9.7 % (9.0-44.0); Mean Corpuscular HGB Conc 33.4 % (32.0-36.0); Mean Corpuscular Hemoglobin 28.1 pg (27.0-34.0); Mean Corpuscular Volume 84.3 fL (80.0-100.0); Mean Platelet Volume 8.4 fL (7.0-11.0); Mono # (Auto) 1.2 th/mm3 (0.0-0.9); Neut # (Auto) 12.1 th/mm3 (1.8-7.7); Neut % (Auto) 80.9 % (16.0-70.0); Platelet Count 216 th/mm3 (150-450); Red Blood Count 4.48 mil/mm3 (4.50-5.90); Red Cell Distribution Width 12.9 % (11.6-17.2); White Blood Count 14.9 th/mm3 (4.0-11.0)
[2017-12-08 07:01] LABS: Chloride 100 meq/L (98-107); Potassium 3.7 meq/L (3.5-5.1); Sodium 138 meq/L (136-145)
[2017-12-08 07:05] LABS: Calcium 8.7 mg/dL (8.5-10.1)
[2017-12-08 07:22] LABS: Alanine Aminotransferase 14 U/L (12-78); Albumin 2.9 g/dL (3.4-5.0); Alkaline Phosphatase 69 U/L (45-117); Anion Gap 7 meq/L (5-15); Aspartate Aminotransferase 10 U/L (15-37); Blood Urea Nitrogen 10 mg/dL (7-18); Carbon Dioxide 31.5 meq/L (21.0-32.0); Glomerular Filtration Rate 85 mL/min (>89); Glucose,Random 88 mg/dL (74-106); Total Protein 7.5 g/dL (6.4-8.2)
--- NOTE | 2017-12-08 07:51 | P.PNIM ---
Subjective Interval history: Follow up abdominal pain, nausea, vomiting and sepsis. Patient seen and examined, ambulating in room in no apparent distress. Abdominal pain has improved overnight. Reports a bowel movement. Eating well with no nausea or vomiting. Infectious disease and to see patient last night, repeat chest x-ray showing left lobe pneumonia. Started on antibiotics. Awaiting HIDA scan and gallbladder ultrasound today. Vital signs stable. T-max 101.7 overnight. Physical Exam Vital signs: Vital Signs 12/07/17 10:55 12/07/17 12:00 12/07/17 14:22 Temperature 98.3 F 100.7 F H 99.8 F H Pulse Rate 94 H Respiratory Rate 17 Blood Pressure 120/64 Pulse Oximetry 95 12/07/17 16:00 12/07/17 20:00 12/08/17 00:00 Temperature 101.7 F H 99.5 F 98.1 F Pulse Rate 92 H 83 78 Respiratory Rate 17 20 20 Blood Pressure 125/78 120/82 108/67 Pulse Oximetry 95 95 99 Intake & Output 12/07/17 12/08/17 12/08/17 18:59 06:59 18:59 Intake Total 2210 / 2210 60 / 60 Balance 2210 / 2210 60 / 60 Weight 115.1 kg Intake: IV 1250 / 1250 NS Inj 1,000 ML @ 100 mls/hr IV 1250 / 1250 .CONT .Q10H [facility] Rx#:[id number] Oral 960 / 960 60 / 60 Other: # Voids 6 2 # Bowel Movements 2 Narrative: GENERAL: Well-developed, well-nourished patient in [facility]. SKIN: Warm and dry. No rash. HEAD: Normocephalic. Atraumatic. EYES: Pupils equal and round. No scleral icterus. No injection or drainage. ENT: No nasal bleeding or discharge. Mucous membranes pink and moist. NECK: Supple. Trachea midline. CARDIOVASCULAR: Regular rate and rhythm. S1, S2 noted. No murmur appreciated. RESPIRATORY: No accessory muscle use. Diminished lung sounds in bilateral lower bases. Breath sounds equal bilaterally. GASTROINTESTINAL: Abdomen soft, mild tenderness to right lower quadrant as well as midepigastric area, nondistended. Normoactive bowel sounds x4. MUSCULOSKELETAL: No obvious deformities. Extremities without clubbing, cyanosis , or edema. NEUROLOGICAL: Awake and alert. No obvious cranial nerve deficits. Motor grossly within normal limits. 5/5 muscle strength in bilateral upper and lower extremities. Normal speech. PSYCHIATRIC: Appropriate mood and affect; insight and judgment normal. Results - Labs CBC & Chem 7: 12/08/17 05:35 12/08/17 05:35 Laboratory Results - last 24 hr 12/07/17 12/07/17 12/08/17 04:40 04:40 05:35 CBC w Diff Auto diff final WBC 14.9 H RBC 4.48 L Hgb 12.6 L Hct 37.7 L MCV 84.3 MCH 28.1 MCHC 33.4 RDW 12.9 Plt Count 216 MPV 8.4 Neut % (Auto) 80.9 H Lymph % (Auto) 9.7 [place] % (Auto) 8.0 Eos % (Auto) 1.2 Baso % (Auto) 0.2 Neut # (Auto) 12.1 H Lymph # (Auto) 1.4 [place] # (Auto) 1.2 H Eos # (Auto) 0.2 Baso # (Auto) 0.0 WBC Differential . Differential Comment . ESR 1 Sodium Potassium Chloride Carbon Dioxide Anion Gap BUN Creatinine Estimated GFR Random Glucose Calcium Total Bilirubin AST ALT Alkaline Phosphatase C-Reactive Protein 23.70 H Total Protein Albumin 12/08/17 05:35 CBC w Diff WBC RBC Hgb Hct MCV MCH MCHC RDW Plt Count MPV Neut % (Auto) Lymph % (Auto) [place] % (Auto) Eos % (Auto) Baso % (Auto) Neut # (Auto) Lymph # (Auto) [place] # (Auto) Eos # (Auto) Baso # (Auto) WBC Differential Differential Comment ESR Sodium 138 Potassium 3.7 Chloride 100 Carbon Dioxide 31.5 Anion Gap 7 BUN 10 Creatinine 0.93 Estimated GFR 85 L Random Glucose 88 Calcium 8.7 Total Bilirubin 1.2 H AST 10 L ALT 14 Alkaline Phosphatase 69 C-Reactive Protein Total Protein 7.5 D Albumin 2.9 L Microbiology 12/06/17 03:30 Blood - Peripheral Aerobic Blood Culture - Preliminary No growth in 1 day 12/06/17 03:30 Blood - Peripheral Anaerobic Blood Culture - Preliminary No growth in 1 day 12/06/17 03:15 Blood - Peripheral Aerobic Blood Culture - Preliminary No growth in 1 day 12/06/17 03:15 Blood - Peripheral Anaerobic Blood Culture - Preliminary No growth in 1 day - Imaging Impressions Abdomen X-Ray 12/07/17 00:00 CONCLUSION: No evidence of obstruction. Chest X-Ray 12/07/17 19:21 CONCLUSION: Early or mild pneumonia developing left lung base. Assessment and Plan - Assessment (1) Abdominal pain Code(s): R10.9 - Unspecified abdominal pain Status: Acute Plan: -Etiology is unclear at this time the patient's abdominal pain. Could be secondary to constipation. Has improved, although still present. -Was given an enema as well as lactulose yesterday and Dulcolax suppository. Reports of 2 bowel movements overnight. -Will obtain records from surgery back in March 2017. Spoke to patient's surgeon regarding his prior procedure, recommendations to evaluate gallbladder. -CT scan of the abdomen does not indicate any acute abnormality. - Laboratory studies do not indicate any acute abdominal etiology. -Continue IV fluids. -Continue pain control. -Continue Darcy-Colace twice daily. -Will add lactulose today. -Awaiting HIDA scan and gallbladder ultrasound this morning. (2) Leukocytosis Code(s): D72.829 - Elevated white blood cell count, unspecified Status: Acute Plan: -Suspect secondary to pneumonia. Initial chest x-ray was negative. Repeat chest x-ray showing early or mild pneumonia developing in the left lung base. -Urinalysis was clear. -Blood cultures no growth to date. -Leukocytosis trending down today. T-max 101.7 overnight. -Infectious disease following patient, started on Unasyn IV. IV fluids. (3) Febrile illness Code(s): R50.9 - Fever, unspecified Status: Acute Plan: Secondary to pneumonia. (4) Elevated blood pressure reading Code(s): R03.0 - Elevated blood-pressure reading, without diagnosis of hypertension Status: Acute Plan: -Resolved. -Patient has no history of hypertension, could be secondary to pain. -Has been controlled overnight. -Vasotec as needed (5) Aspiration pneumonia Code(s): J69.0 - Pneumonitis due to inhalation of food and vomit Status: Acute Plan: Started on Unasyn IV. ID following. Await for clinical improvement. Monitor leukocytosis. Monitor for fever. - Plan Discharge Planning: Pending clinical improvement.
--- NOTE | 2017-12-08 11:23 | US ---
EXAM DATE: 12/08/2017 11:13 AM EDT AGE/SEX: 52 years / Male INDICATIONS: Right upper quadrant pain. CLINICAL DATA: This is the patient's initial encounter. Patient reports that signs and/or symptoms h ave been present for 1 week and indicates a pain score of 2/10. MEDICAL/SURGICAL HISTORY: . Abdominal pain. . Gastric bypass. COMPARISON: [facility], CT ABDOMEN & PELVIS W CONTRAST, 12/05/2017. . MEASUREMENTS: Liver:__ 17.3 cm. Common Bile Duct:__ 8mm. FINDINGS: Liver: Increased echotexture without focal lesion or ductal dilation. Portal Vein: Hepatopedal flow seen in portal vein. Common Duct: Common duct dilated to 8 mm. Gallbladder: Gallbladder wall thickening without pericholecystic fluid. No significant tenderness di rectly over the gallbladder. Pancreas: Not well visualized. Right Kidney: Normal echotexture and cortical thickness. No mass or hydronephrosis. Other: No ascites CONCLUSION: 1. Multiple small gallstones. Dilated common duct. 2. Chronic cholecystitis, possibly acute cholecystitis with suspected common duct stone.. Electronically signed by: Oumar Flood MD 12/08/2017 11:21 AM EDT
[2017-12-08] MEDS: Ampicillin/Sulbactam Inj 3 GM in Sodium Chloride 0.9% Inj 100 ML IV.SIG SCH ×2 (16:00→16:05)
--- NOTE | 2017-12-08 16:26 | NM ---
EXAM DATE: 12/08/2017 1:06 PM EDT AGE/SEX: 52 years / Male INDICATIONS: Right upper quadrant pain for three days with nausea. CLINICAL DATA: This is the patient's initial encounter. Patient reports that signs and symptoms have been present for 3 days and indicates a pain score of 7/10. MEDICAL/SURGICAL HISTORY: None. Gastric bypass. COMPARISON: [facility], US ABDOMEN - GALLBLADDER, 12/08/2017. . DOSE: 4.1 mCi Tc-99m mebrofenin i.v. TECHNIQUE: Following the intravenous administration of radiotracer, dynamic sequential images were pe rformed with continuous acquisition. Time-activity curves were generated. FINDINGS: Hepatic Kinetics: There is prompt uptake of radiotracer in the liver. No focal defects are seen. T here is normal rate of washout from the hepatic parenchyma. Biliary Clearance: Activity is first seen in the extrahepatic biliary system at 10 minutes. There i s normal excretion into the small bowel. Gallbladder: No activity is identified in the gallbladder up to 90 minutes. Biliary-Enteric Reflux: None observed. CONCLUSION: 1. Nonvisualization of the gallbladder at 90 minutes. 2. Considering sonographic appearance of the gallbladder and the presence of cholelithiasis this is most characteristic of acute cholecystitis with cystic duct obstruction. Electronically signed by: Alden Wade MD 12/08/2017 4:25 PM EDT
--- NOTE | 2017-12-08 18:12 | P.PNID ---
Subjective Remarks: Feels better Less pain. Fever this morning Breathing ok. Antibiotics: Unasyn Lines: Peripheral IV line Past Medical History: Obesity Allergies/Adverse Reactions: Allergies No Known Allergies Allergy (Verified 12/06/17 03:00) Objective Vital Signs 12/07/17 20:00 12/08/17 00:00 12/08/17 08:00 Temperature 99.5 F 98.1 F 98.4 F Pulse Rate 83 78 92 H Respiratory Rate 20 20 20 Blood Pressure 120/82 108/67 118/64 Pulse Oximetry 95 99 93 L 12/08/17 12:00 Temperature 98.2 F Pulse Rate 84 Respiratory Rate 20 Blood Pressure 114/75 Pulse Oximetry 96 Intake & Output 12/07/17 12/08/17 12/08/17 18:59 06:59 18:59 Intake Total 2210 / 2210 60 / 60 Balance 2210 / 2210 60 / 60 Weight 115.1 kg Intake: IV 1250 / 1250 NS Inj 1,000 ML @ 100 mls/hr IV 1250 / 1250 .CONT .Q10H [facility] Rx#:[id number] Oral 960 / 960 60 / 60 Other: # Voids 6 2 Date of Last Bowel Movement 12/07/17 # Bowel Movements 2 12/06/17 03:30 Blood - Peripheral Aerobic Blood Culture - Preliminary No growth in 2 days 12/06/17 03:30 Blood - Peripheral Anaerobic Blood Culture - Preliminary No growth in 2 days 12/06/17 03:15 Blood - Peripheral Aerobic Blood Culture - Preliminary No growth in 2 days 12/06/17 03:15 Blood - Peripheral Anaerobic Blood Culture - Preliminary No growth in 2 days Lab - Hematology Results 12/07/17 12/07/17 12/08/17 04:40 04:40 05:35 CBC w Diff Auto diff final Auto diff final WBC 19.1 H 14.9 H RBC 4.85 4.48 L Hgb 13.6 12.6 L Hct 40.7 37.7 L MCV 83.9 84.3 MCH 28.1 28.1 MCHC 33.5 33.4 RDW 12.9 12.9 Plt Count 234 216 MPV 8.0 8.4 Neut % (Auto) 87.5 H 80.9 H Lymph % (Auto) 5.6 L 9.7 Harding % (Auto) 6.2 8.0 Eos % (Auto) 0.2 1.2 Baso % (Auto) 0.5 0.2 Neut # (Auto) 16.7 H 12.1 H Lymph # (Auto) 1.1 1.4 Harding # (Auto) 1.2 H 1.2 H Eos # (Auto) 0.0 0.2 Baso # (Auto) 0.1 0.0 WBC Differential . . Differential Comment . . ESR 1 Lab - Chemistry Results 12/07/17 12/07/17 12/08/17 04:40 04:40 05:35 Sodium 136 138 Potassium 4.1 3.7 Chloride 99 100 Carbon Dioxide 30.7 31.5 Anion Gap 6 7 BUN 8 10 Creatinine 0.94 0.93 Estimated GFR 84 L 85 L Random Glucose 112 H 88 Calcium 8.6 8.7 Total Bilirubin 1.2 H AST 10 L ALT 14 Alkaline Phosphatase 69 C-Reactive Protein 23.70 H Total Protein 7.5 D Albumin 2.9 L Imaging: ITS Impressions Abdomen X-Ray 12/07/17 00:00 CONCLUSION: No evidence of obstruction. Chest X-Ray 12/07/17 19:21 CONCLUSION: Early or mild pneumonia developing left lung base. Gallbladder Ultrasound 12/08/17 00:00 CONCLUSION: 1. Multiple small gallstones. Dilated common duct. 2. Chronic cholecystitis, possibly acute cholecystitis with suspected common duct stone.. Hepatobiliary Scan Nuclear Medicine 12/08/17 00:00 CONCLUSION: 1. Nonvisualization of the gallbladder at 90 minutes. 2. Considering sonographic appearance of the gallbladder and the presence of cholelithiasis this is most characteristic of acute cholecystitis with cystic duct obstruction. Physical Exam: Constitutional no acute distress, obese - Routine HEENT Exam Head: Present: normocephalic, atraumatic Eye: Present: EOMI. Absent: conjunctival icterus, exophthalmos ENT: Present: mucous membranes moist, oropharynx clear, nares patent - Routine Neck Exam Present: supple, full ROM. Absent: carotid bruit - Routine Chest/Breast/Axilla Exam Chest wall: Absent: tenderness, mass - Routine Respiratory Exam Present: decreased breath sounds. Absent: accessory muscle use, respiratory distress, rhonchi - Routine Cardiovascular Exam Present: RRR, S1, S2. Absent: murmur - Routine Abdominal Exam Present: soft, normoactive bowel sounds, tenderness in RUQ. Absent: distended, organomegaly, mass - Routine Extremities Exam Absent: cyanosis, clubbing, edema, calf tenderness - Routine Skin Exam Present: intact. Absent: cyanosis, erythema, dry - Routine Neurological Exam Present: alert, oriented X3, CN II-XII intact. Absent: motor deficit Assessment and Plan (1) Abdominal pain Status: Acute Code(s): R10.9 - Unspecified abdominal pain (2) Leukocytosis Status: Acute Code(s): D72.829 - Elevated white blood cell count, unspecified (3) Febrile illness Status: Acute Code(s): R50.9 - Fever, unspecified (4) Elevated blood pressure reading Status: Acute Code(s): R03.0 - Elevated blood-pressure reading, without diagnosis of hypertension (5) Cholecystitis, acute with cholelithiasis Status: Acute Code(s): K80.00 - Calculus of gallbladder with acute cholecystitis without obstruction (6) Aspiration pneumonia Status: Acute Code(s): J69.0 - Pneumonitis due to inhalation of food and vomit - Plan 1. Reviewed US and Nuclear scan- Cholecystitis- Consult Surgery 2. Reviewed CXR - infiltrate ? Aspiration 3. Blood cultures- negative 4. Continue Unasyn 3 g IV q6hrs
[2017-12-08] MEDS: Acetaminophen 325 MG Tablet PO PRN (20:47)
--- NOTE | 2017-12-09 07:57 | MB ---
cc: Bharathi Madison MD DATE: 12/08/2017 REFERRING PHYSICIAN: Dr. Hale HISTORY OF PRESENT ILLNESS: This is a 52-year-old male who has a history of gastric sleeve about a year ago. He lost 100 pounds. The patient came complaining of epigastric pain and right upper quadrant pain, dull in nature, was up to 8/10. He has significant discomfort. He denied any other symptoms. No nausea, no vomiting, no diarrhea, no GI bleed. The patient is still having symptoms. He was seen as an outpatient in the emergency room and he felt worse, so he came back. PAST SURGICAL HISTORY: Significant for gastric sleeve. No other medical problem. SOCIAL HISTORY: Negative for tobacco or alcohol. REVIEW OF SYSTEMS: All 12-point negative except HPI. FAMILY HISTORY: Noncontributory. PHYSICAL EXAMINATION: GENERAL: Alert, oriented, in no acute distress. VITAL SIGNS: Stable. HEENT: Pupils round, reactive to light. NECK: Supple. CHEST: Clear to auscultation and percussion. CARDIAC: Regular rate and rhythm. No murmur or gallop. ABDOMEN: Soft, batch or continuous still operator with some rebound in the right upper quadrant and mid epigastric area with tenderness. No hepatosplenomegaly. EXTREMITIES: No edema, clubbing or cyanosis. NEUROLOGIC: Alert and oriented. No obvious deficit and no abnormality. PSYCHIATRIC: Psychologically appropriate. IMAGING STUDIES: The patient had gallbladder ultrasound which showed multiple small gallstones, dilated common bile duct, chronic cholecystitis, possible acute cholecystitis, with suspected common duct stone. Gallbladder showed nonvisualization at 90-minutes. Patient had no activity in the gallbladder. The sonographic appearance is consistent with cholelithiasis and acute cholecystitis with cystic duct obstruction. There was biliary clearance in 10 minutes and there was normal extraction into the small bowel. LABORATORY DATA: White count 14.9, down from 19.1, platelet 216, hemoglobin 12.6, total bilirubin 1.2, AST 10, ALT 14, alkaline phosphatase 69, lipase 111. ASSESSMENT AND PLAN: A 52-year-old male with mild elevation of liver function tests. Total bilirubin 1.2, but the patient most likely has cholecystitis. There is questionable dilated common bile duct, but the liver function test is not severely elevated and there is good clearance of the nuclear on HIDA scan. Because of that, I am going to order an MRCP to see if there is any common bile duct stone. If there is not, then the patient will need with possible intraoperative cholangiogram. If there is a stone, then the patient will need an ERCP and we will proceed with that. Also, we will ask for surgical consult since the patient is having abdominal pain. MD JOHN Frias/ , 06:48 PM , 07:11 PM
--- NOTE | 2017-12-09 10:07 | P.PNIM ---
Subjective Interval history: Follow-up abdominal pain, nausea, vomiting, seizures pneumonia, cholecystitis, cholelithiasis. Patient seen and examined, ambulating halls in no apparent distress. Pain is improved. Went down for MRCP today. Awaiting results. Abdominal pain improved. Nausea improved. Vital signs stable. T-max 100.6 overnight. General surgery and to see patient today, waiting further workup. Physical Exam Vital signs: Vital Signs 12/08/17 12:00 12/08/17 16:00 12/08/17 20:00 Temperature 98.2 F 99.7 F H 100.6 F H Pulse Rate 84 86 84 Respiratory Rate 20 20 20 Blood Pressure 114/75 122/70 114/62 Pulse Oximetry 96 98 99 12/09/17 00:00 12/09/17 09:05 Temperature 99.4 F 99.4 F Pulse Rate 74 81 Respiratory Rate 20 16 Blood Pressure 136/68 131/68 Pulse Oximetry 96 94 L Intake & Output 12/08/17 12/09/17 12/09/17 18:59 06:59 18:59 Intake Total 0 / 0 0 / 0 Balance 0 / 0 0 / 0 Weight 115.2 kg Intake: Oral 0 / 0 0 / 0 Other: # Voids 3 2 Date of Last Bowel Movement 12/07/17 12/07/17 12/08/17 # Bowel Movements 1 1 Narrative: GENERAL: Well-developed, well-nourished patient in [facility]. SKIN: Warm and dry. No rash. HEAD: Normocephalic. Atraumatic. EYES: Pupils equal and round. No scleral icterus. No injection or drainage. ENT: No nasal bleeding or discharge. Mucous membranes pink and moist. NECK: Supple. Trachea midline. CARDIOVASCULAR: Regular rate and rhythm. S1, S2 noted. No murmur appreciated. RESPIRATORY: No accessory muscle use. Diminished lung sounds in bilateral lower bases. Breath sounds equal bilaterally. GASTROINTESTINAL: Abdomen soft, mild tenderness to right lower quadrant as well as midepigastric area, nondistended. Normoactive bowel sounds x4. MUSCULOSKELETAL: No obvious deformities. Extremities without clubbing, cyanosis , or edema. NEUROLOGICAL: Awake and alert. No obvious cranial nerve deficits. Motor grossly within normal limits. 5/5 muscle strength in bilateral upper and lower extremities. Normal speech. PSYCHIATRIC: Appropriate mood and affect; insight and judgment normal. - Constitutional no acute distress - Routine HEENT Exam Head: Present: normocephalic Eye: Present: EOMI, PERRL ENT: Present: mucous membranes moist Results - Labs CBC & Chem 7: 12/08/17 05:35 12/08/17 05:35 Microbiology 12/06/17 03:30 Blood - Peripheral Aerobic Blood Culture - Preliminary No growth in 2 days 12/06/17 03:30 Blood - Peripheral Anaerobic Blood Culture - Preliminary No growth in 2 days 12/06/17 03:15 Blood - Peripheral Aerobic Blood Culture - Preliminary No growth in 2 days 12/06/17 03:15 Blood - Peripheral Anaerobic Blood Culture - Preliminary No growth in 2 days - Imaging Impressions Gallbladder Ultrasound 12/08/17 00:00 CONCLUSION: 1. Multiple small gallstones. Dilated common duct. 2. Chronic cholecystitis, possibly acute cholecystitis with suspected common duct stone.. Hepatobiliary Scan Nuclear Medicine 12/08/17 00:00 CONCLUSION: 1. Nonvisualization of the gallbladder at 90 minutes. 2. Considering sonographic appearance of the gallbladder and the presence of cholelithiasis this is most characteristic of acute cholecystitis with cystic duct obstruction. Assessment and Plan - Assessment (1) Abdominal pain Code(s): R10.9 - Unspecified abdominal pain Status: Acute Plan: Constipation is improved status post bowel regimen, lactulose, Dulcolax, Darcy- Colace and enema. Possibly related to cholelithiasis/acute cholecystitis. -CT scan of the abdomen does not indicate any acute abnormality. -Laboratory studies do not indicate any acute abdominal etiology. -Continue IV fluids. -Continue pain control. IV Dilaudid as needed. -Continue Darcy-Colace twice daily. -Gallbladder ultrasound showing some gallstones as well as possible acute cholecystitis. General surgery has been consulted, input recommendations pending. - Awaiting second part of HIDA scan as well as MRCP. May need an ERCP later today. (2) Leukocytosis Code(s): D72.829 - Elevated white blood cell count, unspecified Status: Acute Plan: -Suspect secondary to pneumonia. Initial chest x-ray was negative. Repeat chest x-ray showing early or mild pneumonia developing in the left lung base. -Urinalysis was clear. -Blood cultures no growth to date. -Leukocytosis trending down today. T-max 100.6 overnight. -Infectious disease following patient, started on Unasyn IV. IV fluids. (3) Febrile illness Code(s): R50.9 - Fever, unspecified Status: Acute Plan: Secondary to pneumonia. (4) Elevated blood pressure reading Code(s): R03.0 - Elevated blood-pressure reading, without diagnosis of hypertension Status: Acute Plan: -Resolved. -Patient has no history of hypertension, could be secondary to pain. -Has been controlled overnight. -Vasotec as needed (5) Aspiration pneumonia Code(s): J69.0 - Pneumonitis due to inhalation of food and vomit Status: Acute Plan: Started on Unasyn IV. ID following. Monitor leukocytosis. Monitor for fever. - Plan Discharge Planning: Pending clinical improvement. Awaiting MRCP, HIDA scan results. Awaiting general surgery input.
--- NOTE | 2017-12-09 13:37 | MR ---
EXAM DATE: 12/09/2017 1:05 PM EDT AGE/SEX: 52 years / Male INDICATIONS: Abdominal pain. Nausea and vomiting for three days. CLINICAL DATA: This is the patient's initial encounter. Patient reports that signs and symptoms have been present for 3 days and indicates a pain score of 7/10. MEDICAL/SURGICAL HISTORY: None. Gastric bypass. COMPARISON: [facility], CT ABDOMEN & PELVIS W CONTRAST, 12/05/2017.. Nuclear medicine hepatobiliary scan 12/08/2017. Ultrasound of the abdomen 12/08/2017 . TECHNIQUE: Multiplanar, multisequence images of the abdomen were obtained without contrast including dedicated cholangiographic images. FINDINGS: Liver: The liver is homogeneous and normal in signal intensity with no focal defects. Intrahepatic Bile Ducts: There is no intrahepatic biliary ductal dilatation. Common Bile Duct: The common bile duct is normal in caliber and measures 3 mm in diameter. No fillin g defects or obstructing lesions are identified. Gallbladder: There is smooth circumferential wall thickening involving the gallbladder. The wall gómez sures up to 5 mm in thickness. No filling defects to suggest stones or sludge. Pancreas: The pancreas appears normal in signal with no focal parenchymal abnormalities. The pancre atic duct is normal in caliber with no filling defects, or obstructing lesions identified. CONCLUSION: 1. Gallbladder wall thickening without discernible stones or sludge. The common bile duct is normal in caliber measuring 3 mm. Consider acalculous cholecystitis. Alternatively hepatic disease as well a s right-sided heart failure can cause venous congestion of the gallbladder wall with resulting thicke mariel. Electronically signed by: Presley Montesinos MD 12/09/2017 1:36 PM EDT
[2017-12-09] MEDS: Sod Chloride 0.9% Inj 1,000 ML IV.CONT SCH ×3 (16:28→16:29)
[2017-12-09] MEDS: Ampicillin/Sulbactam Inj 3 GM in Sodium Chloride 0.9% Inj 100 ML IV.SIG SCH ×4 (16:30→21:11)
--- NOTE | 2017-12-09 16:49 | P.CONGS ---
HPI Gen Surgery Consult Note Consult date: 12/09/17 Reason for consult: abdominal pain Requesting physician: Jennifer Vigil Narrative: This is a 52 year old male who had a laparoscopic gastric sleeve in March of 2017 who a came to the ED Wednesday with abdominal pain with associated nausea and vomiting. A CT abdomen/pelvis was obtained with no findings. He was sent home. His pain awoke him from sleep at about 0400 Wednesday morning. He came back to the ED. The patient was found to have an elevated WBC of 14.7 A HIDA scan was obtained and shows nonvisualization of the gallbladder and the presence of cholelithiasis with likely a cystic duct obstruction. An US shows cholelithiasis and a dilated common duct and suspected common bile duct stone. An MRCP was obtained and shows gallbladder wall thickening and a normal common bile duct. His liver enzymes are slightly elevated. GI has also been consulted. Of note, the patient has lost 103 pounds since his gastric sleeve 8 months ago. A General Surgery consultation has been requested. <Alicia Wolfe - Last Filed: 12/10/17 10:54> Review of Systems Constitutional: Reports chills, Denies fatigue Eyes: Denies blurry vision Ears, Nose, Mouth, and Throat: Denies abnormal hearing, Denies sore throat Cardiovascular: Denies chest pain Respiratory: Denies cough Gastrointestinal: Reports abdominal pain, Reports nausea, Reports vomiting Genitourinary: Denies urinary frequency Musculoskeletal: Denies joint pain, Denies joint swelling Skin/Breast: Denies lesions Neurologic: Denies abnormal hearing Psychiatric: Denies anxiety Endocrine: Denies cold intolerance, Denies heat intolerance Hematologic/Lymphatic: Denies enlarged lymph nodes Allergic/Immunologic: Denies GI upset with certain foods <Alicia Wolfe - Last Filed: 12/10/17 10:54> PMFSH - History History Provided By: Patient - Medical / Surgical Hx Neg / Unobtainable Medical Problems Denied: Yes - Medical History Medical History: Medical History (Last Updated 12/07/17 @ 19:33 by Kezia Eli MD) Obesity Patient denies medical problems Sleep apnea - Surgical History Surgical History: Surgical History (Last Updated 12/06/17 @ 05:15 by Juana Danielle RN) H/O gastric bypass - Family History Family History: Family History (Last Updated 12/06/17 @ 10:53 by ROHINI Rutledge) Other No significant family history - Tobacco History Second Hand Smoke Exposure: No Smoking Status: Never smoker - Alcohol History How Often Do You Have a Drink Containing Alcohol: Never - Substance Use History Substance History: No History of Abuse - Immunization History Tetanus Immunization: Unsure Hx Influenza Vaccine This Season: No <Alicia Wolfe - Last Filed: 12/10/17 10:54> - Medical History Medical History: Medical History (Last Updated 12/07/17 @ 19:33 by Kezia Eli MD) Obesity Patient denies medical problems Sleep apnea - Surgical History Surgical History: Surgical History (Last Updated 12/06/17 @ 05:15 by Juana Danielle RN) H/O gastric bypass - Family History Family History: Family History (Last Reviewed 12/10/17 @ 15:10 by Angel Gonzalez MD) Other No significant family history <Angel Gonzalez - Last Filed: 12/25/17 07:06> Medications and Allergies Active Medications: Active Medications Acetaminophen (Tylenol) 650 mg PO Q4H PRN PRN Reason: Temp > 100.4 Last Admin: 12/08/17 20:47 Dose: 650 mg Hydrocodone Bitart/Acetaminophen ([place] 7.5/325) 1 tab PO Q6H PRN PRN Reason: pain 1 - 5 Al Hydroxide/Mg Hydroxide (Milk Of Magnesia Liq) 30 ml PO DAILY PRN PRN Reason: SEVERE CONSITIPATION Last Admin: 12/06/17 11:16 Dose: 30 ml Enalaprilat (Vasotec Inj) 1.25 mg IV.PUSH Q6H PRN PRN Reason: SBP>160, DBP>90 Hydromorphone HCl (Dilaudid Pf Inj) 1 mg IV.PUSH Q4H PRN PRN Reason: pain 6 - 10 Last Admin: 12/07/17 04:59 Dose: 1 mg Sodium Chloride (Ns Inj) 1,000 mls @ 100 mls/hr IV.CONT .Q10H [facility] Last Admin: 12/09/17 16:29 Dose: 100 mls/hr Ampicillin Sodium/Sulbactam (Sodium 3 gm/ Sodium Chloride) 100 mls @ 200 mls/ hr IV.SIG Q6H [facility] Last Admin: 12/09/17 16:31 Dose: 100 mls/hr Metoclopramide HCl (Reglan Inj) 5 mg IV.PUSH Q8HR SUZ[facility]NE; Protocol Last Admin: 12/09/17 16:35 Dose: 5 mg Ondansetron HCl (Zofran Inj) 4 mg IV.PUSH Q6H PRN PRN Reason: NAUSEA OR VOMITING Last Admin: 12/06/17 08:03 Dose: 4 mg Pantoprazole Sodium (Protonix) 40 mg PO HS SUZANNE Last Admin: 12/08/17 20:47 Dose: 40 mg Senna/Docusate Sodium (Darcy-Colace) 1 tab PO BID PRN PRN Reason: CONSTIPATION <Alicia Wolfe - Last Filed: 12/10/17 10:54> Active Medications: Active Medications Acetaminophen (Tylenol) 650 mg PO Q4H PRN PRN Reason: Temp > 100.4 Last Admin: 12/10/17 13:28 Dose: 650 mg Hydrocodone Bitart/Acetaminophen ([place] 7.5/325) 1 tab PO Q6H PRN PRN Reason: pain 1 - 5 Hydrocodone Bitart/Acetaminophen ([place] 5/325) 2 tab PO Q4H PRN PRN Reason: PAIN SCALE 3 TO 5 Al Hydroxide/Mg Hydroxide (Milk Of Magnesia Liq) 30 ml PO DAILY PRN PRN Reason: SEVERE CONSITIPATION Last Admin: 12/06/17 11:16 Dose: 30 ml Enalaprilat (Vasotec Inj) 1.25 mg IV.PUSH Q6H PRN PRN Reason: SBP>160, DBP>90 Hydromorphone HCl (Dilaudid Pf Inj) 1 mg IV.PUSH Q4H PRN PRN Reason: pain 6 - 10 Last Admin: 12/07/17 04:59 Dose: 1 mg Sodium Chloride (Ns Inj) 1,000 mls @ 100 mls/hr IV.CONT .Q10H SUZANNE Last Admin: 12/10/17 08:05 Dose: 100 mls/hr Ampicillin Sodium/Sulbactam (Sodium 3 gm/ Sodium Chloride) 100 mls @ 200 mls/ hr IV.SIG Q6H SUZANNE Last Infusion: 12/10/17 13:33 Dose: Infused Metoclopramide HCl (Reglan Inj) 5 mg IV.PUSH Q8HR SUZANNE; Protocol Last Admin: 12/10/17 13:29 Dose: 5 mg Ondansetron HCl (Zofran Inj) 4 mg IV.PUSH Q6H PRN PRN Reason: NAUSEA OR VOMITING Last Admin: 12/06/17 08:03 Dose: 4 mg Pantoprazole Sodium (Protonix) 40 mg PO [facility] Last Admin: 12/09/17 21:10 Dose: 40 mg Senna/Docusate Sodium (Darcy-Colace) 1 tab PO BID PRN PRN Reason: CONSTIPATION <Angel Gonzalez S - Last Filed: 12/25/17 07:06> Allergies Allergy/AdvReac Type Severity Reaction Status Date / Time No Known Allergies Allergy Verified 12/10/17 13:56 Exam Vital signs: Vital Signs 12/08/17 20:00 12/09/17 00:00 12/09/17 09:05 Temperature 100.6 F H 99.4 F 99.4 F Pulse Rate 84 74 81 Respiratory Rate 20 20 16 Blood Pressure 114/62 136/68 131/68 Pulse Oximetry 99 96 94 L 12/09/17 11:58 12/09/17 12:29 Temperature 98.8 F Pulse Rate 83 Respiratory Rate 16 Blood Pressure 107/74 Pulse Oximetry 96 Intake & Output 12/08/17 12/09/17 12/09/17 18:59 06:59 18:59 Intake Total 100 / 100 0 / 0 Balance 100 / 100 0 / 0 Weight 115.2 kg Intake: IV 100 / 100 Unasyn Inj 3 GM In NS Inj 100 100 / 100 ML @ 200 mls/hr IV.SIG Q6H [facility] Rx#:[id number] Oral 0 / 0 0 / 0 Other: # Voids 3 2 Date of Last Bowel Movement 12/07/17 12/07/17 12/08/17 # Bowel Movements 1 1 Narrative: GENERAL: Very pleasant 52 year old male resting in bed in no acute distress. SKIN: Warm and dry. HEAD: Atraumatic. Normocephalic. EYES: Pupils equal and round. No scleral icterus. No injection or drainage. ENT: No nasal bleeding or discharge. Mucous membranes pink and moist. NECK: Trachea midline. CARDIOVASCULAR: Regular rate and rhythm. RESPIRATORY: No accessory muscle use. Clear to auscultation. Breath sounds equal bilaterally. GASTROINTESTINAL: Abdomen soft, obese, non distended. RUQ tenderness with palpation. Well healed laparoscopic scars. MUSCULOSKELETAL: Extremities without clubbing, cyanosis, or edema. No obvious deformities. NEUROLOGICAL: Awake and alert. No obvious cranial nerve deficits. Motor grossly within normal limits. Five out of 5 muscle strength in the arms and legs. Normal speech. PSYCHIATRIC: Appropriate mood and affect; insight and judgment normal. <Alicia Wolfe - Last Filed: 12/10/17 10:54> Vital signs: Vital Signs 12/09/17 17:14 12/09/17 17:39 12/09/17 20:00 Temperature 99.5 F 101.5 F H Pulse Rate 87 95 H Respiratory Rate 14 16 20 Blood Pressure 138/71 117/75 Pulse Oximetry 99 99 12/10/17 00:00 12/10/17 08:00 12/10/17 12:00 Temperature 99.5 F 99.9 F H 101.6 F H Pulse Rate 80 88 96 H Respiratory Rate 21 18 18 Blood Pressure 123/73 115/73 124/69 Pulse Oximetry 99 98 95 12/10/17 13:51 Temperature 101.6 F H Pulse Rate 96 H Respiratory Rate 18 Blood Pressure 124/69 Pulse Oximetry 95 Intake & Output 12/09/17 12/10/17 12/10/17 18:59 06:59 18:59 Intake Total 100 / 100 1200 / 1200 1200 / 1200 Balance 100 / 100 1200 / 1200 1200 / 1200 Weight 118.6 kg Intake: IV 100 / 100 1200 / 1200 1200 / 1200 NS Inj 1,000 ML @ 100 mls/hr IV 1000 / 1000 1000 / 1000 .CONT .Q10H [facility] Rx#:[id number] Unasyn Inj 3 GM In NS Inj 100 100 / 100 200 / 200 200 / 200 ML @ 200 mls/hr IV.SIG Q6H [facility] Rx#:[id number] Oral 0 / 0 Other: # Voids 3 3 Date of Last Bowel Movement 12/08/17 12/08/17 12/09/17 # Bowel Movements 1 0 <Angel Gonzalez - Last Filed: 12/25/17 07:06> Results - Labs 12/10/17 04:50 12/10/17 04:50 All other labs normal. - Imaging US - abdomen: report reviewed Additional studies: MRCP and HIDA scan <Alicia Wolfe - Last Filed: 12/10/17 10:54> - Labs 12/11/17 09:46 12/10/17 04:50 Abnormal lab results 12/10/17 12/10/17 Range/Units 04:50 04:50 WBC 14.0 H (4.0-11.0) th/mm3 RBC 4.07 L (4.50-5.90) mil/mm3 Hgb 11.6 L (13.0-17.0) gm/dL Hct 33.7 L (39.0-51.0) % Neut % (Auto) 83.4 H (16.0-70.0) % Lymph % (Auto) 7.5 L (9.0-44.0) % Neut # (Auto) 11.8 H (1.8-7.7) th/mm3 [place] # (Auto) 1.1 H (0.0-0.9) th/mm3 Potassium 3.4 L (3.5-5.1) meq/L Estimated GFR 82 L (>89) mL/min Calcium 8.4 L (8.5-10.1) mg/dL Albumin 2.6 L (3.4-5.0) g/dL Diabetes panel 12/10/17 Range/Units 04:50 Sodium 138 (136-145) meq/L Potassium 3.4 L (3.5-5.1) meq/L Chloride 100 (98-107) meq/L Carbon Dioxide 29.5 (21.0-32.0) meq/L BUN 9 (7-18) mg/dL Creatinine 0.96 (0.60-1.30) mg/dL Calcium 8.4 L (8.5-10.1) mg/dL AST 15 (15-37) U/L ALT 20 (12-78) U/L Alkaline Phosphatase 67 (45-117) U/L Total Protein 7.2 (6.4-8.2) g/dL Albumin 2.6 L (3.4-5.0) g/dL Calcium panel 12/10/17 Range/Units 04:50 Calcium 8.4 L (8.5-10.1) mg/dL Albumin 2.6 L (3.4-5.0) g/dL Pituitary panel 12/10/17 Range/Units 04:50 Sodium 138 (136-145) meq/L Potassium 3.4 L (3.5-5.1) meq/L Chloride 100 (98-107) meq/L Carbon Dioxide 29.5 (21.0-32.0) meq/L BUN 9 (7-18) mg/dL Creatinine 0.96 (0.60-1.30) mg/dL Calcium 8.4 L (8.5-10.1) mg/dL Adrenal panel 12/10/17 Range/Units 04:50 Sodium 138 (136-145) meq/L Potassium 3.4 L (3.5-5.1) meq/L Chloride 100 (98-107) meq/L Carbon Dioxide 29.5 (21.0-32.0) meq/L BUN 9 (7-18) mg/dL Creatinine 0.96 (0.60-1.30) mg/dL Calcium 8.4 L (8.5-10.1) mg/dL Total Bilirubin 0.8 (0.2-1.0) mg/dL AST 15 (15-37) U/L ALT 20 (12-78) U/L Alkaline Phosphatase 67 (45-117) U/L Total Protein 7.2 (6.4-8.2) g/dL Albumin 2.6 L (3.4-5.0) g/dL All other labs normal. <Angel Gonzalez - Last Filed: 12/25/17 07:06> Assessment and Plan - Plan 52 year old male with recent intention weight loss of 100 pounds s/p gastric sleeve; RUQ tenderness; nausea/vomiting -MRCP shows normal CBD -No need for ERCP -Will plan for laparoscopic cholecystectomy possible open procedure possible intraoperative cholangiogram tomorrow in OR -Clear liquids tonight; NPO after MN -Hold anticoagulation -Obtain consents -Explained procedure in detail including risks and benefits -Discussed with Allegra POPE -Thank you for this consult; We will continue to follow Discussed Condition With: Dr. Carlos POPE Mr. Ahmadi <Alicia Wolfe - Last Filed: 12/10/17 10:54> - Plan patient seen at bedside presented with abdominal pain and findings of acute cholecystitis with cholelithiasis mrcp no cbd stone plan for lap ese tomorrow discussed with patient - Attending Attestation The exam, history, and the medical decision-making described in the above note were completed with the assistance of the mid-level provider. I reviewed and agree with the findings presented. I attest that I had a [id number] encounter with the patient on the same day, and personally performed and documented my assessment and findings in the medical record. <Angel Gonzalez - Last Filed: 12/25/17 07:06>
--- NOTE | 2017-12-09 18:35 | P.PNGI ---
Subjective Interval history: Patient laying in bed, feel much better, still having some abdominal discomfort but improved since yesterday, had an MRCP which was negative for common bile duct stone Physical Exam Vital signs: Vital Signs 12/08/17 20:00 12/09/17 00:00 12/09/17 09:05 Temperature 100.6 F H 99.4 F 99.4 F Pulse Rate 84 74 81 Respiratory Rate 20 20 16 Blood Pressure 114/62 136/68 131/68 Pulse Oximetry 99 96 94 L 12/09/17 11:58 12/09/17 12:29 12/09/17 17:14 Temperature 98.8 F 99.5 F Pulse Rate 83 87 Respiratory Rate 16 14 Blood Pressure 107/74 138/71 Pulse Oximetry 96 99 12/09/17 17:39 Temperature Pulse Rate Respiratory Rate 16 Blood Pressure Pulse Oximetry Intake & Output 12/08/17 12/09/17 12/09/17 18:59 06:59 18:59 Intake Total 100 / 100 0 / 0 100 / 100 Balance 100 / 100 0 / 0 100 / 100 Weight 115.2 kg Intake: IV 100 / 100 100 / 100 Unasyn Inj 3 GM In NS Inj 100 100 / 100 100 / 100 ML @ 200 mls/hr IV.SIG Q6H [facility] Rx#:[id number] Oral 0 / 0 0 / 0 Other: # Voids 3 2 3 Date of Last Bowel Movement 12/07/17 12/07/17 12/08/17 # Bowel Movements 1 1 1 - Constitutional no acute distress - Routine HEENT Exam Head: Present: normocephalic Eye: Present: EOMI - Routine Neck Exam Present: supple - Routine Respiratory Exam Present: CTA bilaterally - Routine Cardiovascular Exam Present: RRR, S1, S2 - Routine Abdominal Exam Present: soft, tenderness (In the right upper quadrant, positive bowel sounds) Results - Labs CBC & Chem 7: 12/08/17 05:35 12/08/17 05:35 Microbiology 12/06/17 03:30 Blood - Peripheral Aerobic Blood Culture - Preliminary No growth in 3 days 12/06/17 03:30 Blood - Peripheral Anaerobic Blood Culture - Preliminary No growth in 3 days 12/06/17 03:15 Blood - Peripheral Aerobic Blood Culture - Preliminary No growth in 3 days 12/06/17 03:15 Blood - Peripheral Anaerobic Blood Culture - Preliminary No growth in 3 days - Imaging Impressions Hepatobiliary Scan Nuclear Medicine 12/08/17 00:00 CONCLUSION: 1. Nonvisualization of the gallbladder at 90 minutes. 2. Considering sonographic appearance of the gallbladder and the presence of cholelithiasis this is most characteristic of acute cholecystitis with cystic duct obstruction. Cholangiopancreatography MRI 12/09/17 00:00 CONCLUSION: 1. Gallbladder wall thickening without discernible stones or sludge. The common bile duct is normal in caliber measuring 3 mm. Consider acalculous cholecystitis. Alternatively hepatic disease as well as right-sided heart failure can cause venous congestion of the gallbladder wall with resulting thickening. Assessment and Plan - Plan Patient is 52-year-old gentleman who has abdominal pain cholecystitis, MRCP did not show any common bile duct stone so no need for ERCP, proceed with laparoscopic cholecystectomy tomorrow, we will follow-up as needed Patient will need a colonoscopy as an outpatient
[2017-12-09] MEDS: Acetaminophen 325 MG Tablet PO PRN (21:09)
[2017-12-10] MEDS: Ampicillin/Sulbactam Inj 3 GM in Sodium Chloride 0.9% Inj 100 ML IV.SIG SCH ×4 (02:18→18:26)
[2017-12-10] MEDS: Sod Chloride 0.9% Inj 1,000 ML IV.CONT SCH ×2 (02:19→08:05)
[2017-12-10 06:18] LABS: Baso % (Auto) 0.2 % (0.0-2.0); Eos # (Auto) 0.1 th/mm3 (0.0-0.4); Eos % (Auto) 0.9 % (0.0-4.0); Hematocrit 33.7 % (39.0-51.0); Hemoglobin 11.6 gm/dL (13.0-17.0); Lymph % (Auto) 7.5 % (9.0-44.0); Mean Corpuscular HGB Conc 34.3 % (32.0-36.0); Mean Corpuscular Hemoglobin 28.4 pg (27.0-34.0); Mean Corpuscular Volume 82.8 fL (80.0-100.0); Mean Platelet Volume 8.4 fL (7.0-11.0); Mono # (Auto) 1.1 th/mm3 (0.0-0.9); Neut # (Auto) 11.8 th/mm3 (1.8-7.7); Neut % (Auto) 83.4 % (16.0-70.0); Platelet Count 249 th/mm3 (150-450); Red Blood Count 4.07 mil/mm3 (4.50-5.90); Red Cell Distribution Width 13.2 % (11.6-17.2)
[2017-12-10 06:22] LABS: Chloride 100 meq/L (98-107); Potassium 3.4 meq/L (3.5-5.1); Sodium 138 meq/L (136-145)
[2017-12-10 06:27] LABS: Albumin 2.6 g/dL (3.4-5.0); Anion Gap 9 meq/L (5-15); Blood Urea Nitrogen 9 mg/dL (7-18); Calcium 8.4 mg/dL (8.5-10.1); Carbon Dioxide 29.5 meq/L (21.0-32.0); Glucose,Random 98 mg/dL (74-106)
[2017-12-10 06:30] LABS: Alanine Aminotransferase 20 U/L (12-78); Aspartate Aminotransferase 15 U/L (15-37); Glomerular Filtration Rate 82 mL/min (>89)
[2017-12-10 06:31] LABS: Total Protein 7.2 g/dL (6.4-8.2)
[2017-12-10 06:33] LABS: Alkaline Phosphatase 67 U/L (45-117)
--- NOTE | 2017-12-10 10:33 | P.PN ---
Subjective Interval history: Follow-up acute cholecystitis. Patient seen and examined, lying in bed comfortably no apparent distress. T-max 101.5 overnight. White blood cells 14, 000. Blood cultures negative today. Patient undergo a laparoscopic cholecystectomy today at 1430. Physical Exam Vital signs: Vital Signs 12/09/17 11:58 12/09/17 12:29 12/09/17 17:14 Temperature 98.8 F 99.5 F Pulse Rate 83 87 Respiratory Rate 16 14 Blood Pressure 107/74 138/71 Pulse Oximetry 96 99 12/09/17 17:39 12/09/17 20:00 12/10/17 00:00 Temperature 101.5 F H 99.5 F Pulse Rate 95 H 80 Respiratory Rate 16 20 21 Blood Pressure 117/75 123/73 Pulse Oximetry 99 99 12/10/17 08:00 Temperature 99.9 F H Pulse Rate 88 Respiratory Rate 18 Blood Pressure 115/73 Pulse Oximetry 98 Intake & Output 12/09/17 12/10/17 12/10/17 18:59 06:59 18:59 Intake Total 100 / 100 1200 / 1200 1100 / 1100 Balance 100 / 100 1200 / 1200 1100 / 1100 Weight 118.6 kg Intake: IV 100 / 100 1200 / 1200 1100 / 1100 NS Inj 1,000 ML @ 100 mls/hr IV 1000 / 1000 1000 / 1000 .CONT .Q10H [facility] Rx#:[id number] Unasyn Inj 3 GM In NS Inj 100 100 / 100 200 / 200 100 / 100 ML @ 200 mls/hr IV.SIG Q6H [facility] Rx#:[id number] Oral 0 / 0 Other: # Voids 3 3 Date of Last Bowel Movement 12/08/17 12/08/17 # Bowel Movements 1 0 Narrative: GENERAL: Well-developed, well-nourished patient in NAD. SKIN: Warm and dry. No rash. HEAD: Normocephalic. Atraumatic. EYES: Pupils equal and round. No scleral icterus. No injection or drainage. ENT: No nasal bleeding or discharge. Mucous membranes pink and moist. NECK: Supple. Trachea midline. CARDIOVASCULAR: Regular rate and rhythm. S1, S2 noted. No murmur appreciated. RESPIRATORY: No accessory muscle use. Diminished lung sounds in bilateral lower bases. Breath sounds equal bilaterally. GASTROINTESTINAL: Abdomen soft, mild tenderness to right lower quadrant as well as midepigastric area, nondistended. Normoactive bowel sounds x4. MUSCULOSKELETAL: No obvious deformities. Extremities without clubbing, cyanosis , or edema. NEUROLOGICAL: Awake and alert. No obvious cranial nerve deficits. Motor grossly within normal limits. 5/5 muscle strength in bilateral upper and lower extremities. Normal speech. PSYCHIATRIC: Appropriate mood and affect; insight and judgment normal. - Constitutional no acute distress - Routine HEENT Exam Head: Present: normocephalic Eye: Present: EOMI, PERRL ENT: Present: mucous membranes moist - Routine Neck Exam Present: supple Results - Labs CBC & Chem 7: 12/10/17 04:50 12/10/17 04:50 Laboratory Results - last 24 hr 12/10/17 12/10/17 04:50 04:50 CBC w Diff Auto diff final WBC 14.0 H RBC 4.07 L Hgb 11.6 L Hct 33.7 L MCV 82.8 MCH 28.4 MCHC 34.3 RDW 13.2 Plt Count 249 MPV 8.4 Neut % (Auto) 83.4 H Lymph % (Auto) 7.5 L [place] % (Auto) 8.0 Eos % (Auto) 0.9 Baso % (Auto) 0.2 Neut # (Auto) 11.8 H Lymph # (Auto) 1.0 [place] # (Auto) 1.1 H Eos # (Auto) 0.1 Baso # (Auto) 0.0 WBC Differential . Differential Comment . Sodium 138 Potassium 3.4 L Chloride 100 Carbon Dioxide 29.5 Anion Gap 9 BUN 9 Creatinine 0.96 Estimated GFR 82 L Random Glucose 98 Calcium 8.4 L Total Bilirubin 0.8 AST 15 ALT 20 Alkaline Phosphatase 67 Total Protein 7.2 Albumin 2.6 L Microbiology 12/06/17 03:30 Blood - Peripheral Aerobic Blood Culture - Preliminary No growth in 3 days 12/06/17 03:30 Blood - Peripheral Anaerobic Blood Culture - Preliminary No growth in 3 days 12/06/17 03:15 Blood - Peripheral Aerobic Blood Culture - Preliminary No growth in 3 days 12/06/17 03:15 Blood - Peripheral Anaerobic Blood Culture - Preliminary No growth in 3 days - Imaging Impressions Cholangiopancreatography MRI 12/09/17 00:00 CONCLUSION: 1. Gallbladder wall thickening without discernible stones or sludge. The common bile duct is normal in caliber measuring 3 mm. Consider acalculous cholecystitis. Alternatively hepatic disease as well as right-sided heart failure can cause venous congestion of the gallbladder wall with resulting thickening. Assessment and Plan - Assessment (1) Abdominal pain Code(s): R10.9 - Unspecified abdominal pain Status: Acute Plan: -Constipation is improved status post bowel regimen, lactulose, Dulcolax, Darcy- Colace and enema. Possibly related to cholelithiasis/acute cholecystitis. -CT scan of the abdomen does not indicate any acute abnormality. -Laboratory studies do not indicate any acute abdominal etiology. -Continue IV fluids. -Continue pain control. IV Dilaudid as needed. -Continue Darcy-Colace twice daily. -Gallbladder ultrasound showing some gallstones as well as possible acute cholecystitis. General surgery has been consulted, plan for laparoscopic cholecystectomy today. (2) Leukocytosis Code(s): D72.829 - Elevated white blood cell count, unspecified Status: Acute Plan: -Suspect secondary to pneumonia. Initial chest x-ray was negative. Repeat chest x-ray showing early or mild pneumonia developing in the left lung base. -Urinalysis was clear. -Blood cultures no growth to date. -Leukocytosis trending down today. T-max 101.5 overnight. -Infectious disease following patient, started on Unasyn IV. IV fluids. (3) Febrile illness Code(s): R50.9 - Fever, unspecified Status: Acute Plan: Secondary to pneumonia. (4) Elevated blood pressure reading Code(s): R03.0 - Elevated blood-pressure reading, without diagnosis of hypertension Status: Acute Plan: -Resolved. -Patient has no history of hypertension, could be secondary to pain. -Has been controlled overnight. -Vasotec as needed (5) Aspiration pneumonia Code(s): J69.0 - Pneumonitis due to inhalation of food and vomit Status: Acute Plan: Started on Unasyn IV. ID following. Monitor leukocytosis. Monitor for fever. - Plan Discharge Planning: Pending clinical improvement. Awaiting cholecystectomy today.
[2017-12-10] MEDS: Acetaminophen 325 MG Tablet PO PRN (13:28)
[2017-12-10] MEDS ORDERED: Lidocaine 1%/Epinephrine 1:100,000 Inj 30 ML Vial ONE (13:38)
[2017-12-10] MEDS ORDERED: Bupivacaine/Epinephrine PF Inj 0.5% 30 ML Vial ONE (13:38)
[2017-12-10] MEDS ORDERED: Lidocaine 1%/Epinephrine 1:100,000 Inj 20 ML Vial ONE (13:39)
--- NOTE | 2017-12-10 15:07 | P.OP ---
- Preoperative Diagnosis (1) Cholecystitis, acute with cholelithiasis - Postoperative Diagnosis (1) Cholecystitis, acute with cholelithiasis Date of procedure: 12/10/17 Procedure: lap ese Anesthesia: GETA Surgeon: Angel Gonzalez MD Estimated blood loss (mL): 5 Pathology: other (gallbladder) Operation and Findings: distended gallbadder, necrotic, with small stones and adhesion
[2017-12-10] MEDS ORDERED: fentaNYL Citrate Inj 100 MCG/2 ML Ampul ONE (16:57)
--- NOTE | 2017-12-10 17:01 | MP ---
cc: Angel Gonzalez MD DATE OF OPERATION: 12/10/2017 DATE OF PROCEDURE: 12/10/2017. PREOPERATIVE DIAGNOSES: Acute cholecystitis, cholelithiasis. POSTOPERATIVE DIAGNOSES: Acute cholecystitis, cholelithiasis. PROCEDURE PERFORMED: Laparoscopic cholecystectomy. SURGEON: Angel Gonzalez MD BUSINESS MANAGEMENT ANALYST: See OR sheet. ANESTHESIA: GETA. IV FLUIDS: See anesthesia sheet. ESTIMATED BLOOD LOSS: 15 mL DRAIN. None. COMPLICATIONS: None. WOUND CLASSIFICATION: Infected. SPECIMENS: Gallbladder. FINDINGS: Necrotic gallbladder with a very thickened edematous wall with the omental adhesions. Multiple very tiny gallstones. Good hemostasis. 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 The patient did well with this and presented with acute onset of abdominal pain. Further workup including CT scan, HIDA scan, and MRCP with initial concern for possible common bile duct stone; however, this was negative on MRCP. The patient was placed on antibiotics and noted to be febrile. The decision was made for laparoscopic cholecystectomy due to acute cholecystitis and cholelithiasis. DESCRIPTION OF PROCEDURE: The patient was taken to the operating suite, placed in supine position. He was prepped and draped in the usual sterile fashion after induction of general endotracheal anesthesia. Brief timeout done stating correct patient, procedure, surgical site. We were all in agreement with this. Attention first directed to the umbilicus where a small stab werner incision was made with a 15 blade. Veress needle placed. Intraabdominal placement confirmed with saline drop test. The abdomen insufflated to 15 mm pneumoperitoneum. A 5 mm Visiport Optiview port was placed at the umbilicus incision. On cursory inspection, no evidence of injury. The patient was placed in reverse Trendelenburg and airplaned to the left. Three other trocars were placed, including epigastric 12 mm and two 5 mm right subcostal ports. These were done under direct visualization. The gallbladder in the right upper quadrant was visualized and initially unable to see due to omental adhesions that were intermittently adhered to the gallbladder. These were dissected away. On inspection, the gallbladder noted to have very thickened wall and manan areas necrotic. The gallbladder was decompressed with an endo-needle and 80 mL of bile removed. Gallbladder fundus was grasped and retracted cephalad. The cystic duct and cystic artery were dissected using hook electrical Bovie cautery, [place] dissector and suction irrigation. Two tiny vascular structures were noted to be going directly into the gallbladder. Two clips were placed proximal and two distal on each of these. The small cystic arteries was then incised. The cystic duct was dissected out and 3 clips were placed proximal, 1 distal and EndoShears used to transect the cystic duct. The gallbladder was removed from the gallbladder fossa with hook Bovie electrocautery, again noting somewhat manan necrotic gallbladder. This was placed in an EndoCatch bag and removed from the epigastric port. Suction irrigation was done until effluent was clear. Bovie electrocautery was used for hemostasis. Next, the pneumoperitoneum was removed. The ports were removed. The fascia was closed with a [id number] 0 Vicryl, 4-0 Monocryl used for subcuticular suture and the skin at all port sites. Local anesthetic injected. Sterile dressings including Mastisol and Steri-Strips were placed. The patient tolerated the procedure well. There were no intraoperative complications. All lap and instrument counts were correct at the end of the procedure. The patient was extubated and taken stable to PACU. MD JEAN PIERRE Romero/YUSUF , 04:38 PM , 04:59 PM
[2017-12-11] MEDS: Ampicillin/Sulbactam Inj 3 GM in Sodium Chloride 0.9% Inj 100 ML IV.SIG SCH ×2 (02:22→06:43)
--- NOTE | 2017-12-11 08:16 | P.DS ---
Date of admission: 12/09/17 10:09 Primary care physician: Jhonatan Nayak MD Brief History from admission: 52-year-old male with no chronic medical illnesses who presented to hospital because of acute onset abdominal pain. Patient indicates that he did have gastric sleeve surgery done in March 2017 by a physician in [facility]. Patient been doing well with that procedure except for when he decides to eat too much he usually has to cause himself to vomit in order to get rid of the pain and discomfort. Patient states that he woke up Wednesday morning at approximately 5 AM with sudden onset of epigastric abdominal pain. The patient states that he tried to induce vomiting but the pain did not go away. The patient's pain progressively got worse until he came to the emergency department yesterday morning. Patient was given Dilaudid with significant improvement of his abdominal pain and was discharged home on Zofran. The patient states that once Zofran wore off approximately fci through the day the pain progressively got worse throughout the evening so he came back to the emergency department for evaluation. Patient did have workup in the emergency department and found to have leukocytosis. However no other laboratory studies indicative any intra-abdominal etiology. CT scan was done of the abdomen which did not indicate any acute abnormality also. Because the patient came back to the emergency department 2 times in 1 day, leukocytosis and low-grade fever he is recommended by the ER physician that the patient be observed in the hospital for further evaluation and management. Patient denies any nausea, vomiting, hematemesis. Patient has not had a bowel movement in approximately 4-5 days. He believes that he is constipated. Denies any dark colored stools or hematochezia. DS: Diagnosis - Discharge Diagnosis (1) Abdominal pain Status: Acute (2) Leukocytosis Status: Acute (3) Febrile illness Status: Acute (4) Elevated blood pressure reading Status: Acute (5) Aspiration pneumonia Status: Acute DS: Medications - Discharge Medications Prescriptions: amoxicillin-pot clavulanate [Augmentin] 1 tab PO Q12H 14 Days #28 tab DS: Summary Hospital Course: 52-year-old male patient presented with severe abdominal pain, nausea and vomiting. CT of the abdomen did not show any acute abnormality. Lab studies were insignificant. Gallbladder ultrasound showing gallstones as well as possible acute cholecystitis. General surgery consulted, laparoscopic cholecystectomy was performed on 12/10/17. Patient was also found to have possible aspiration pneumonia with leukocytosis as well as febrile illness. Patient is comfortable on room air during hospitalization. Started on Unasyn IV. Eventually transferred to Augmentin p.o. Initial chest ray on presentation was negative. Repeat chest x-ray showed left lung base mild developing pneumonia. Blood cultures negative to date. T-max over the course of the hospitalization was 101.5. Infectious disease was consulted followed patient during hospitalization. Leukocytosis did improve, although day of discharge with blood cells 19,000. This is likely a stress response. Discharged home on antibiotics per infectious disease recommendations. Patient advised to follow- up with surgery outpatient upon discharge. Patient also had severe constipation during hospitalization. Patient was given bowel regimen including lactulose, Dulcolax, Darcy-Colace and enemas. This eventually resolved. Patient is having bowel movements without any problems. Patient is stabilized on day of discharge. Vital signs stable. Afebrile. Tolerating p.o. intake without any abdominal pain, nausea or vomiting. Patient advised to return to ED if symptoms worsen and to contact PCP upon discharge for follow-up. - Time Spent with Patient Total time spent providing and/or coordinating discharge services: Greater than 30 minutes - Quality: VTE Deep Vein Thrombosis/Pulmonary Embolism Present on Admission: No Exam Vital signs: Vital Signs 12/10/17 12:00 12/10/17 13:51 12/10/17 16:30 Temperature 101.6 F H 101.6 F H 97.1 F L Pulse Rate 96 H 96 H 75 Respiratory Rate 18 18 14 Blood Pressure 124/69 124/69 90/55 L Pulse Oximetry 95 95 94 L 12/10/17 16:55 12/10/17 17:10 12/10/17 17:25 Temperature 98.0 F Pulse Rate 75 75 75 Respiratory Rate 16 16 16 Blood Pressure 101/64 113/70 101/64 Pulse Oximetry 97 97 97 12/10/17 17:40 12/10/17 20:00 12/11/17 00:00 Temperature 98.0 F 97.0 F L 96.9 F L Pulse Rate 75 63 65 Respiratory Rate 16 20 20 Blood Pressure 121/75 114/73 109/73 Pulse Oximetry 97 97 95 Intake & Output 12/10/17 12/11/17 12/11/17 18:59 06:59 18:59 Intake Total 4110 / 4110 920 / 920 100 / 100 Output Total 15 Balance 4095 / 4095 920 / 920 100 / 100 Weight 117.93 kg Intake: IV 2200 / 2200 200 / 200 100 / 100 NS Inj 1,000 ML @ 100 mls/hr IV 1999 / 1999 .CONT .Q10H SUZANNE Rx#:[id number] Unasyn Inj 3 GM In NS Inj 100 200 / 200 200 / 200 100 / 100 ML @ 200 mls/hr IV.SIG Q6H SUZANNE Rx#:[id number] Oral 960 / 960 720 / 720 Anesthesia Amount 950 / 950 Output: Estimated Blood Loss Other: # Voids 4 3 Date of Last Bowel Movement 12/09/17 12/09/17 # Bowel Movements 0 Narrative: GENERAL: Well-developed, well-nourished patient in NAD. SKIN: Warm and dry. No rash. HEAD: Normocephalic. Atraumatic. EYES: Pupils equal and round. No scleral icterus. No injection or drainage. ENT: No nasal bleeding or discharge. Mucous membranes pink and moist. NECK: Supple. Trachea midline. CARDIOVASCULAR: Regular rate and rhythm. S1, S2 noted. No murmur appreciated. RESPIRATORY: No accessory muscle use. Clear to auscultation. Breath sounds equal bilaterally. GASTROINTESTINAL: Abdomen soft, non-tender, nondistended. Normoactive bowel sounds x4. Laparoscopic incisions with Steri-Strips in place. No distention, tenderness or erythema or bleeding. MUSCULOSKELETAL: No obvious deformities. Extremities without clubbing, cyanosis , or edema. NEUROLOGICAL: Awake and alert. No obvious cranial nerve deficits. Motor grossly within normal limits. 5/5 muscle strength in bilateral upper and lower extremities. Normal speech. PSYCHIATRIC: Appropriate mood and affect; insight and judgment normal. - Constitutional no acute distress - Routine HEENT Exam Head: Present: normocephalic Eye: Present: EOMI, PERRL ENT: Present: mucous membranes moist - Routine Neck Exam Present: supple Results Procedures completed during hospitalization: Laparoscopic cholecystectomy 12/11/17. Pending studies at discharge: Pending at discharge 12/10/17 Surgical [PTH] Routine Labs on day of discharge: Labs from last 24 hours 12/08/17 05:35 HASEEB Screen Neg Preliminary micro results at discharge 12/06/17 03:30 Aerobic Blood Culture - Preliminary Blood - Peripheral No growth in 4 days Anaerobic Blood Culture - Preliminary No growth in 4 days 12/06/17 03:15 Aerobic Blood Culture - Preliminary Blood - Peripheral No growth in 4 days Anaerobic Blood Culture - Preliminary No growth in 4 days - Impressions ITS Impressions Abdomen X-Ray 12/07/17 00:00 CONCLUSION: No evidence of obstruction. Chest X-Ray 12/07/17 19:21 CONCLUSION: Early or mild pneumonia developing left lung base. Gallbladder Ultrasound 12/08/17 00:00 CONCLUSION: 1. Multiple small gallstones. Dilated common duct. 2. Chronic cholecystitis, possibly acute cholecystitis with suspected common duct stone.. Hepatobiliary Scan Nuclear Medicine 12/08/17 00:00 CONCLUSION: 1. Nonvisualization of the gallbladder at 90 minutes. 2. Considering sonographic appearance of the gallbladder and the presence of cholelithiasis this is most characteristic of acute cholecystitis with cystic duct obstruction. Cholangiopancreatography MRI 12/09/17 00:00 CONCLUSION: 1. Gallbladder wall thickening without discernible stones or sludge. The common bile duct is normal in caliber measuring 3 mm. Consider acalculous cholecystitis. Alternatively hepatic disease as well as right-sided heart failure can cause venous congestion of the gallbladder wall with resulting thickening. Discharge Plan - Discharge Disposition Patient Disposition: 01 Discharge Home - Discharge Condition Condition: Good - Discharge Order Discharge Orders: Discharge Order (Routine); Ordered 12/11/17 Ordered By: Allegra Mccloud - Discharge Details Anticipated Discharge Date: 12/11/17 Discharge Comment: Today. - Physicians Team Primary Care Provider: Jhonatan Nayak Attending Provider: Cady Ordoñez Other Providers: Kezia Eli MD ; Bharathi Madison MD ; Angel Gonzalez MD ; Surgeons,[facility]
[2017-12-11 09:59] LABS: Hematocrit 34.8 % (39.0-51.0); Hemoglobin 11.6 gm/dL (13.0-17.0); Mean Corpuscular HGB Conc 33.3 % (32.0-36.0); Mean Corpuscular Hemoglobin 28.1 pg (27.0-34.0); Mean Corpuscular Volume 84.4 fL (80.0-100.0); Mean Platelet Volume 7.4 fL (7.0-11.0); Platelet Count 302 th/mm3 (150-450); Red Blood Count 4.13 mil/mm3 (4.50-5.90); Red Cell Distribution Width 13.1 % (11.6-17.2); White Blood Count 19.8 th/mm3 (4.0-11.0)
--- NOTE | 2017-12-11 11:20 | P.PNGS ---
Subjective Patient reports: feels better (tolerating diet, wbc elevated but no fevers, post op) Physical Exam Vital signs: Vital Signs 12/10/17 12:00 12/10/17 13:51 12/10/17 16:30 Temperature 101.6 F H 101.6 F H 97.1 F L Pulse Rate 96 H 96 H 75 Respiratory Rate 18 18 14 Blood Pressure 124/69 124/69 90/55 L Pulse Oximetry 95 95 94 L 12/10/17 16:55 12/10/17 17:10 12/10/17 17:25 Temperature 98.0 F Pulse Rate 75 75 75 Respiratory Rate 16 16 16 Blood Pressure 101/64 113/70 101/64 Pulse Oximetry 97 97 97 12/10/17 17:40 12/10/17 20:00 12/11/17 00:00 Temperature 98.0 F 97.0 F L 96.9 F L Pulse Rate 75 63 65 Respiratory Rate 16 20 20 Blood Pressure 121/75 114/73 109/73 Pulse Oximetry 97 97 95 12/11/17 08:00 Temperature 97.8 F Pulse Rate 61 Respiratory Rate 20 Blood Pressure 120/79 Pulse Oximetry 95 Intake & Output 12/10/17 12/11/17 12/11/17 18:59 06:59 18:59 Intake Total 4110 / 4110 920 / 920 100 / 100 Output Total Balance 4095 / 4095 920 / 920 100 / 100 Weight 117.93 kg Intake: IV 2200 / 2200 200 / 200 100 / 100 NS Inj 1,000 ML @ 100 mls/hr IV 1999 / 1999 .CONT .Q10H SUZANNE Rx#:[id number] Unasyn Inj 3 GM In NS Inj 100 200 / 200 200 / 200 100 / 100 ML @ 200 mls/hr IV.SIG Q6H SUZANNE Rx#:[id number] Oral 960 / 960 720 / 720 Anesthesia Amount 950 / 950 Output: Estimated Blood Loss Other: # Voids 4 3 Date of Last Bowel Movement 12/09/17 12/09/17 # Bowel Movements 0 - Routine Cardiovascular Exam Present: RRR - Routine Abdominal Exam Present: soft (incisional tenderness) Assessment and Plan - Plan POD 1 Lap ese- necrotic infected gallbladder with stones PLAN reg diet oob pain control I recommed abx x5 days- defer to ID for recs and PNA tx f/u [address] Gonzalez
[2017-12-11] MEDS ORDERED: Ketorolac Inj 30 MG/ML (IVP) Vial IV.PUSH ONE (12:00)
[2017-12-11] MEDS ORDERED: Lidocaine PF 1% Inj 5 ML Syringe INFILTRATN ONE (12:00)
== END 2017-12-11 12:44 | disposition home or self-care (01) ==
LOC: PHED 02:01 → PHEDA 02:01 → PH3 04:40
PROVIDERS: ADMIT Hospitalist; ATTEND Hospitalist